=== PATIENT | male | born 1965 | race Caucasian/White ===

== ENCOUNTER 2020-11-02 09:15 | Outpatient (REF) | payer OTHER, SELFPAY ==
[2020-11-02 10:03] LABS: MANUAL DIFF FLAG NO
[2020-11-02 10:07] LABS: Basophils Absolute Auto 0.1 X10*3/uL (0.0-0.2); Basophils Percent Auto 1.3 % (0-2); Eosinophils Absolute Auto 0.4 X10*3/uL (0.0-0.4); Eosinophils Percent Auto 5.7 % (0-4); Hematocrit 41.8 % (42-52); Hemoglobin 13.6 g/dl (14.0-18.0); Imm Gran Abs Auto 0.01 X10*3/uL (0.00-0.03); Imm Gran Pct Auto 0.2 % (0.0-0.4); Lymphocytes Absolute Auto 2.9 X10*3/uL (1.2-4.9); Lymphocytes Percent Auto 46.4 % (20-40); Mean Corpuscular HGB Conc 32.5 g/dl (31.0-36.0); Mean Corpuscular Hemoglobin 28.5 pg (27.0-33.0); Mean Corpuscular Volume 87.4 fL (80-98); Mean Platelet Volume 10.9 fL (9.4-12.4); Monocytes Absolute Auto 0.5 X10*3/uL (0.1-1.2); Monocytes Percent Auto 8.1 % (2-11); Neutrophils Absolute Auto 2.4 X10*3/uL (2.0-8.3); Neutrophils Percent Auto 38.3 % (45-73); Platelet Count 239 X10*3/uL (160-400); Red Blood Count 4.78 X10*6/uL (4.60-5.80); Red Cell Distribution Width 13.5 % (11.0-16.0); White Blood Count 6.3 X10*3/uL (4.8-10.8)
[2020-11-02 10:33] LABS: Alanine Aminotransferase 38 U/L (0-40); Albumin Level 4.4 g/dL (3.5-5.0); Alkaline Phosphatase 67 U/L (39-117); Anion Gap 12 (12-20); Aspartate Amino Transferase 35 U/L (5-37); Blood Urea Nitrogen 17 mg/dL (9-16); Calcium 8.9 mg/dL (8.4-10.2); Carbon Dioxide 28 mmol/L (22-29); Chloride 104 mmol/L (96-108); Cholesterol 314 mg/dL; Estimated Glomerular Filt Rate > 60; Glucose Fasting 92 mg/dL (60-99); HDL Cholesterol 58 mg/dL; LDL Cholesterol Calculated 231 mg/dl; Potassium 4.1 mmol/l (3.3-5.1); Sodium 140 mmol/L (135-145); Total Protein 7.1 g/dL (6.5-8.0); Triglycerides 125 mg/dL
[2020-11-02 10:48] LABS: Erythrocyte Sedimentation Rate 8 MM/HR (0-15)
[2020-11-02 10:56] LABS: Free T4 (Free Thyroxine) 1.05 ng/dL (0.71-1.85); Thyroid Stimulating Hormone 3.22 uIU/mL (0.32-4.0)
== END 2020-11-02 09:16 | disposition home or self-care (01) ==
LOC: HO.10HDL 09:15
PROVIDERS: Visit Provider Internal Medicine
DX: Z00.00 Encounter for general adult medical examination without abnormal findings (principal); E03.9 Hypothyroidism, unspecified; L85.3 Xerosis cutis; B85.2 Pediculosis, unspecified
CPT/HCPCS: 36415; 80053; 80061; 84439; 84443; 85025; 85652

== ENCOUNTER 2021-11-13 12:01 | Outpatient (REF) | payer OTHER, SELFPAY ==
[2021-11-13 13:49] LABS: MANUAL DIFF FLAG NO
[2021-11-13 14:02] LABS: Basophils Absolute Auto 0.1 X10*3/uL (0.0-0.2); Basophils Percent Auto 0.9 % (0-2); Eosinophils Absolute Auto 0.3 X10*3/uL (0.0-0.4); Eosinophils Percent Auto 4.3 % (0-4); Hematocrit 41.3 % (42.0-52.0); Hemoglobin 13.5 g/dl (14.0-18.0); Imm Gran Abs Auto 0.01 X10*3/uL (0.00-0.03); Imm Gran Pct Auto 0.1 % (0.0-0.4); Immature Retic Fraction 9.3 % (2.3-13.4); Lymphocytes Percent Auto 38.9 % (20-40); Mean Corpuscular HGB Conc 32.7 g/dl (31.0-36.0); Mean Corpuscular Hemoglobin 29.2 pg (27.0-33.0); Mean Corpuscular Volume 89.2 fL (80.0-98.0); Mean Platelet Volume 11.5 fL (9.4-12.4); Monocytes Absolute Auto 0.6 X10*3/uL (0.1-1.2); Monocytes Percent Auto 8.4 % (2-11); Neutrophils Absolute Auto 3.6 x10*3/uL (2.0-8.3); Neutrophils Percent Auto 47.4 % (45-73); Platelet Count 248 X10*3/uL (160-400); Red Blood Count 4.63 X10*6/uL (4.60-5.80); Red Cell Distribution Width 13.6 % (11.0-16.0); Retic HGB Equivalent 31.4 pg (30.0-35.0); Reticulocyte Percent 1.5 % (0.5-1.8); Reticulocytes Absolute 0.068 X10*6/uL (0.026-0.095); White Blood Count 7.7 X10*3/uL (4.8-10.8)
[2021-11-13 14:32] LABS: Ferritin 88 ng/mL (20-250); Free T4 (Free Thyroxine) 1.08 ng/dL (0.71-1.85); Prostate Specific Antigen Scr < 0.05 ng/mL (<0.05-4.0); Thyroid Stimulating Hormone 3.05 uIU/mL (0.32-4.0)
[2021-11-13 14:37] LABS: Alanine Aminotransferase 17 U/L (0-40); Albumin Level 4.3 g/dL (3.5-5.0); Alkaline Phosphatase 63 U/L (39-117); Anion Gap 12 (12-20); Aspartate Amino Transferase 20 U/L (5-37); Bilirubin Total 0.7 mg/dL (0.0-1.0); Carbon Dioxide 27 mmol/L (22-29); Chloride 105 mmol/L (96-108); Cholesterol 279 mg/dL; Estimated Glomerular Filt Rate > 60; Glucose Random 102 mg/dL (60-115); HDL Cholesterol 48 mg/dL; Iron 79 mcg/dL (45-160); LDL Cholesterol Calculated 202 mg/dl; Percent Iron Saturation 23 % (15-50); Potassium 4.2 mmol/L (3.3-5.1); Sodium 140 mmol/L (135-145); Total Iron Binding Capacity 345 mcg/dL (228-428); Total Protein 7.1 g/dL (6.5-8.0); Triglycerides 146 mg/dL; Unsaturated Iron Binding 266 ug/dL
[2021-11-13 15:48] LABS: Blood Urea Nitrogen 19 mg/dL (9-16); Calcium 9.8 mg/dL (8.4-10.2)
[2021-11-13 21:56] LABS: Folate 10.9 ng/mL (> or = 4.0)
[2021-11-13 23:31] LABS: Vitamin B12 1038 pg/mL (200-900)
== END 2021-11-13 12:02 | disposition home or self-care (01) ==
LOC: HO.10HDL 12:01
PROVIDERS: Visit Provider Internal Medicine
DX: Z12.5 Encounter for screening for malignant neoplasm of prostate (principal); E78.00 Pure hypercholesterolemia, unspecified
CPT/HCPCS: 36415; 80053; 80061; 82607; 82728; 82746; 83540; 84153; 84439; 84443; 85025; 85045

== ENCOUNTER 2022-02-17 12:48 | Outpatient (REF) | payer OTHER, SELFPAY ==
[2022-02-17 14:09] LABS: Cholesterol 175 mg/dL; HDL Cholesterol 35 mg/dL; LDL Cholesterol Calculated 90 mg/dl; Triglycerides 250 mg/dL
== END 2022-02-17 12:49 | disposition home or self-care (01) ==
LOC: HO.10HDL 12:48
PROVIDERS: Visit Provider Internal Medicine
DX: E78.00 Pure hypercholesterolemia, unspecified (principal)
CPT/HCPCS: 36415; 80061

== ENCOUNTER 2022-05-24 09:40 | Outpatient (REF) | payer OTHER, SELFPAY ==
[2022-05-24 10:58] LABS: Alanine Aminotransferase 17 U/L (0-40); Albumin Level 4.2 g/dL (3.5-5.0); Alkaline Phosphatase 58 U/L (39-117); Anion Gap 14 (12-20); Aspartate Amino Transferase 18 U/L (5-37); Bilirubin Total 0.4 mg/dL (0.0-1.0); Blood Urea Nitrogen 20 mg/dL (9-16); Calcium 9.2 mg/dL (8.4-10.2); Carbon Dioxide 28 mmol/L (22-29); Chloride 104 mmol/L (96-108); Estimated Glomerular Filt Rate > 60; Glucose Random 87 mg/dL (60-115); Potassium 4.8 mmol/L (3.3-5.1); Sodium 141 mmol/L (135-145); Total Protein 6.9 g/dL (6.5-8.0)
[2022-05-24 11:06] LABS: Estimated Average Glucose 103 mg/dL; Hemoglobin A1c % 5.2 %
== END 2022-05-24 09:41 | disposition home or self-care (01) ==
LOC: HO.LAB 09:40
PROVIDERS: PCP Internal Medicine; Visit Provider Internal Medicine
DX: E78.00 Pure hypercholesterolemia, unspecified (principal); R73.01 Impaired fasting glucose
CPT/HCPCS: 36415; 80053; 83036

== ENCOUNTER 2022-12-05 14:55 | Outpatient (REF) | payer OTHER, SELFPAY ==
[2022-12-05 15:31] LABS: MANUAL DIFF FLAG NO
[2022-12-05 15:59] LABS: Basophils Absolute Auto 0.1 X10*3/uL (0.0-0.2); Eosinophils Absolute Auto 0.4 X10*3/uL (0.0-0.4); Eosinophils Percent Auto 5.4 % (0-4); Hemoglobin 14.3 g/dl (14.0-18.0); Imm Gran Abs Auto 0.03 X10*3/uL (0.00-0.03); Imm Gran Pct Auto 0.4 % (0.0-0.4); Immature Retic Fraction 12.9 % (2.3-13.4); Lymphocytes Absolute Auto 2.5 X10*3/uL (1.2-4.9); Lymphocytes Percent Auto 37.2 % (20-40); Mean Corpuscular HGB Conc 33.3 g/dl (31.0-36.0); Mean Corpuscular Hemoglobin 29.4 pg (27.0-33.0); Mean Corpuscular Volume 88.5 fL (80.0-98.0); Mean Platelet Volume 11.4 fL (9.4-12.4); Monocytes Absolute Auto 0.6 X10*3/uL (0.1-1.2); Monocytes Percent Auto 9.4 % (2-11); Neutrophils Absolute Auto 3.2 x10*3/uL (2.0-8.3); Neutrophils Percent Auto 46.6 % (45-73); Platelet Count 207 X10*3/uL (160-400); Red Blood Count 4.86 X10*6/uL (4.60-5.80); Red Cell Distribution Width 12.3 % (11.0-16.0); Retic HGB Equivalent 33.8 pg (30.0-35.0); Reticulocyte Percent 1.4 % (0.5-1.8); Reticulocytes Absolute 0.068 X10*6/uL (0.026-0.095); White Blood Count 6.8 X10*3/uL (4.8-10.8)
[2022-12-05 16:08] LABS: Estimated Average Glucose 105 mg/dL; Hemoglobin A1c % 5.3 %
[2022-12-05 16:52] LABS: Alanine Aminotransferase 20 U/L (0-40); Albumin Level 4.2 g/dL (3.5-5.0); Alkaline Phosphatase 81 U/L (39-117); Anion Gap 13 (12-20); Aspartate Amino Transferase 23 U/L (5-37); Bilirubin Total 0.7 mg/dL (0.0-1.0); Blood Urea Nitrogen 24 mg/dL (9-16); Calcium 9.7 mg/dL (8.4-10.2); Carbon Dioxide 30 mmol/L (22-29); Chloride 105 mmol/L (96-108); Cholesterol 231 mg/dL; Estimated Glomerular Filt Rate > 60; Glucose Random 88 mg/dL (60-115); HDL Cholesterol 41 mg/dL; Iron 131 mcg/dL (45-160); LDL Cholesterol Calculated 137 mg/dl; Percent Iron Saturation 40 % (15-50); Potassium 5.5 mmol/L (3.3-5.1); Sodium 142 mmol/L (135-145); Total Iron Binding Capacity 325 mcg/dL (228-428); Total Protein 7.1 g/dL (6.5-8.0); Triglycerides 268 mg/dL; Unsaturated Iron Binding 194 ug/dL
[2022-12-05 17:45] LABS: Ferritin 63 ng/mL (20-250); Folate 9.6 ng/mL (> or = 4.0); Free T4 (Free Thyroxine) 0.93 ng/dL (0.71-1.85); Vitamin B12 839 pg/mL (200-900)
[2022-12-05 19:38] LABS: PSA,Total (Free>4and<10) < 0.10 ng/mL (0.00-4.00)
== END 2022-12-05 14:56 | disposition home or self-care (01) ==
LOC: HO.LAB 14:55
PROVIDERS: PCP Internal Medicine; Visit Provider Internal Medicine
DX: Z12.5 Encounter for screening for malignant neoplasm of prostate (principal); R73.01 Impaired fasting glucose; C61 Malignant neoplasm of prostate; E03.9 Hypothyroidism, unspecified; E78.00 Pure hypercholesterolemia, unspecified
CPT/HCPCS: 36415; 80053; 80061; 82607; 82728; 82746; 83036; 83540; 84153; 84439; 84443; 85025; 85045

== ENCOUNTER 2023-03-12 09:42 | Outpatient (REF) | payer OTHER, SELFPAY ==
[2023-03-12 10:12] LABS: Estimated Average Glucose 103 mg/dL; Hemoglobin A1c % 5.2 %
[2023-03-12 10:26] LABS: Alanine Aminotransferase 28 U/L (0-40); Alkaline Phosphatase 75 U/L (39-117); Anion Gap 12 (12-20); Aspartate Amino Transferase 24 U/L (5-37); Bilirubin Total 0.9 mg/dL (0.0-1.0); Blood Urea Nitrogen 19 mg/dL (9-16); Calcium 9.2 mg/dL (8.4-10.2); Carbon Dioxide 25 mmol/L (22-29); Chloride 105 mmol/L (96-108); Cholesterol 237 mg/dL; Estimated Glomerular Filt Rate > 60; Glucose Random 95 mg/dL (60-115); HDL Cholesterol 38 mg/dL; LDL Cholesterol Calculated 144 mg/dl; Potassium 4.3 mmol/L (3.3-5.1); Sodium 138 mmol/L (135-145); Total Protein 6.7 g/dL (6.5-8.0); Triglycerides 279 mg/dL
== END 2023-03-12 09:43 | disposition home or self-care (01) ==
LOC: HO.LAB 09:42
PROVIDERS: PCP Internal Medicine; Visit Provider Internal Medicine
DX: E78.00 Pure hypercholesterolemia, unspecified (principal); R73.01 Impaired fasting glucose
CPT/HCPCS: 36415; 80053; 80061; 83036

== ENCOUNTER 2023-04-17 14:05 | Outpatient (AMB) | payer OTHER, SELFPAY ==
--- NOTE | 2023-04-17 09:35 | A.OFFVIS_ITS ---
Intake Intake Visit Reasons: LDCT SD Allergies codeine Allergy (Unknown, Verified 03/13/23 15:08) upset stomach HPI LDCT SD HPI Details Initial visit for this 57yo smoker with a 35+PYH. Patient has been smoking since age 15 for 42 years at 3/4-1ppd. Max 1.5ppd. . Denies marijuana use. Denies second hand smoke exposure. Denies exposure to chemicals or substances like asbestos. 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 . Denies known family history of lung cancer. Reports personal history of prostate cancer - s/p TURP in 2012. Denies chest CT in last year. . Denies recent travel outside the [place]. Denies recent respiratory illness or recent hospitalization for respiratory issues. Reports testing positive for COVID. 2020. Admits receiving COVID Vaccine. x 3. . Denies fever, chills, new/worsening cough, hemoptysis, hoarseness or dysphagia. Denies significant chest pain, significant dyspnea or unintentional weight loss. Patient Lung Cancer Screening Questionnaire reviewed with patient by provider. . Shared Decision Making Completed. Patient meets criteria. Discussed in detail with patient, the risk vs benefit of LDCT screening. Patient consents to proceed with scan. Discussed smoking cessation. [facility] Medical History (Updated 04/17/23 @ 14:04 by Ammy Gamble PA-C) Acquired hypothyroidism Anxiety and depression Degenerative disc disease, lumbar Dry skin dermatitis Head lice History of prostate cancer (~2011) Nicotine dependence, cigarettes, uncomplicated Pure hypercholesterolemia Spinal stenosis Surgical History (Updated 04/09/23 @ 12:59 by Ammy Gamble PA-C) History of colonoscopy History of prostate biopsy History of prostate surgery History of vascular surgery Family History (Updated 03/13/23 @ 15:08 by Gracie Baker, [facility]) Father Multiple myeloma Mother CVA (cerebral vascular accident) Uterine cancer Family/Other FH: mental illness Paternal Uncle Heart attack Brother Testicular cancer Renal cancer Ascending aortic aneurysm Social History (Updated 04/17/23 @ 14:04 by Ammy Gamble PA-C) Housing: Apartment Alcohol intake: current Patient Tobacco Use Status: Current everyday Tobacco user Tobacco use type: Cigarette Years Smoked: (current smoker - onset 15yo, 3/4-1ppd x 42yrs, 35+PYH) e-Cigarette/Vaping Use: Never Used Second Hand Smoke Exposure: Yes service: No Current occupational status: retired Cognitive needs: No Hearing needs: No Vision needs: Yes Assessment & Plan Assessment & Plan (1) Nicotine dependence, cigarettes, uncomplicated: Comment: (current smoker - onset 15yo, 3/4-1ppd x 42yrs, 35+PYH) Code(s): F17.210 - Nicotine dependence, cigarettes, uncomplicated Plan: - SDM visit completed today in office. - Patient meets criteria for LDCT for lung cancer screening purposes and is asymptomatic. - Smoking cessation counseling offered. Patients can always call [phone]. - Will arrange for a LDCT scan of the chest for screening purposes at [facility]. - Risks, benefits, and alternatives were discussed in detail and the patient agrees to proceed. - Risks discussed include but are not limited to: radiation exposure, anxiety during testing and while awaiting results, false negatives, false positives and possibility of additional intervention such as further imaging or surgical procedures for benign disease. - Benefits are obviously detection of lung cancer at an early stage which can lead to improved outcomes. - Discussed the importance of screening program compliance with adherence to yearly LDCT scan as scheduled - or sooner interval scans for personalized screening regimen. - Discussed follow up plan. Our office will send a letter discussing results and if needed set up phone call and office visit based on CT findings. - Patient educated on results categorization and the management decisions for suspicious findings potentially found on the screening LDCT scan. Any patient with a Lung RADS score of 3 or 4 will be reviewed by a multidisciplinary team at [facility] to form a plan of action in regards to scan findings. - If further work up is warranted for a suspicious lung finding this will be followed by the Lung Cancer Screening program in conjunction with the Thoracic Surgery Department at [facility]. - A copy of the office note and LDCT will be sent to the patient's PCP - as well as documentation on any associated further plans of care. - Incidental findings on LDCT are the PCP's responsibility. These findings are indicated with an S finding on the LDCT Assessment. A note discussing the findings will be sent to the PCP who is then responsible for further management. - All questions answered.? Coding Level of Care Code Lung Cancer Screening [id number] Diagnoses Nicotine dependence, cigarettes, uncomplicated F17.210
== END 2023-04-17 14:24 | disposition home or self-care (01) ==
PROVIDERS: PCP Internal Medicine; Visit Provider Physician Assistant Medical
DX: F17.210 Nicotine dependence, cigarettes, uncomplicated (principal)
CPT/HCPCS: G0296

== ENCOUNTER 2023-04-17 14:28 | Outpatient (REF) | payer OTHER, SELFPAY ==
--- NOTE | ~2023-04-17 | CT_ITS ---
EXAMINATION: CT CHEST SCREENING CLINICAL INFORMATION: Current smoker. 40 pack year history. COMPARISON: Previous chest x-ray most recent August 2009 TECHNIQUE: Multidetector volumetric CT imaging of the chest is performed without contrast using low dose technique. Additional 2D coronal and sagittal reformatted images and axial 3D maximum intensity projection (MIP) images are generated on the CT workstation. This CT examination was performed using dose optimization techniques as appropriate, variously including the following: *Automated exposure control *Adjustment of mA and/or kV according to patient size (this includes techniques or standardized protocols for targeted exams where dose is matched to indication/reason for exam; i.e. extremities or head) *Use of iterative reconstruction technique DLP: 81 mGy-cm FINDINGS: LUNGS: Emphysema. 3 mm peripheral or subpleural right middle lobe nodule axial image 377 series 5. 2 x 4 mm right middle lobe nodule axial image 379 series 5. 2 mm peripheral or subpleural right lower lobe nodule adjacent to the fissure axial image 372 series 5. 2 mm right lower lobe nodule axial image 362 series 5. 3 mm left upper lobe nodule axial image 345 series 5. 3 x 6 and 2 x 5 mm peripheral or subpleural right lower lobe nodules adjacent to the fissure axial image 329 series 5 5 mm triangular-shaped right middle lobe nodule adjacent to the minor fissure axial image 295 series 5. 3 mm right upper lobe nodules axial image 385 and 291 series 5. 2 mm left upper lobe nodule questioned partially calcified axial image 269 series 5. 2 mm peripheral or subpleural left upper lobe nodule adjacent to the fissure axial image 189 series 5. 3 mm peripheral or subpleural left upper lobe nodule axial image 183 series 5. 2 mm question calcified left upper lobe nodule axial image 242 series 5. 3 mm heterogeneous left upper lobe nodule axial to 22 series 5. 2 mm left upper lobe nodule axial image series 5. Scarring or subsegmental atelectasis at the lung bases. MEDIASTINUM: The mediastinum is normal. CORONARY ARTERY CALCIFICATION: None visualized on this study. PLEURA: There is no pleural effusion. No pleural mass or thickening. AXILLA: No lymphadenopathy. UPPER ABDOMEN: Unremarkable OSSEOUS STRUCTURES: Degenerative changes of the spine. CT/CT lung screening IMPRESSION: Emphysema. Small pulmonary nodules, many of which probably represent 4 subpleural lymph nodes. ASSESSMENT: Lung-RADS category 2: Benign RECOMMENDATION: Annual low-dose chest CT follow-up recommended
== END 2023-04-17 14:29 | disposition home or self-care (01) ==
LOC: HO.CT 14:28
PROVIDERS: PCP Internal Medicine; Visit Provider Physician Assistant Medical
DX: Z12.2 Encounter for screening for malignant neoplasm of respiratory organs (principal); F17.210 Nicotine dependence, cigarettes, uncomplicated
CPT/HCPCS: 71271; G0296

== ENCOUNTER 2023-11-07 10:24 | Outpatient (REF) | payer OTHER, SELFPAY ==
[2023-11-07 11:16] LABS: Estimated Average Glucose 108 mg/dL; Hemoglobin A1c % 5.4 % (<6.0)
[2023-11-07 12:10] LABS: Alanine Aminotransferase 29 U/L (0-40); Albumin Level 4.3 g/dL (3.5-5.0); Alkaline Phosphatase 80 U/L (39-117); Anion Gap 17 (12-20); Aspartate Amino Transferase 24 U/L (5-37); Bilirubin Total 0.6 mg/dL (0.0-1.0); Blood Urea Nitrogen 32 mg/dL (9-16); Calcium 9.8 mg/dL (8.4-10.2); Carbon Dioxide 26 mmol/L (22-29); Chloride 105 mmol/L (96-108); Cholesterol 173 mg/dL (<200); Estimated Glomerular Filt Rate 58; Glucose Random 88 mg/dL (60-115); HDL Cholesterol 42 mg/dL (>40); LDL Cholesterol Calculated 97 mg/dL (<100); Potassium 5.5 mmol/L (3.3-5.1); Sodium 142 mmol/L (135-145); Total Protein 7.6 g/dL (6.5-8.0); Triglycerides 173 mg/dL (<150)
[2023-11-07 12:29] LABS: PSA,Total (Free>4and<10) < 0.10 ng/mL (0.00-4.00); Prostate Specific Antigen Scr < 0.10 ng/mL (<0.05-4.0)
== END 2023-11-07 10:25 | disposition home or self-care (01) ==
LOC: HO.LAB 10:24
PROVIDERS: PCP Internal Medicine; Visit Provider Internal Medicine
DX: Z12.5 Encounter for screening for malignant neoplasm of prostate (principal); C61 Malignant neoplasm of prostate; R73.01 Impaired fasting glucose; E78.00 Pure hypercholesterolemia, unspecified
CPT/HCPCS: 36415; 80053; 80061; 83036; 84153

== ENCOUNTER 2023-11-09 17:19 | Outpatient (AMB) | payer OTHER, SELFPAY ==
--- NOTE | 2023-11-09 17:26 | A.OFFPC_ITS ---
Vital Signs 11/09/23 17:29 Height 6 ft 3 in Weight 110.223 kg BMI 30.4 BP 110/74 Blood Pressure Location Lt brachial Position Sitting Intake Visit Reasons: PE - due for colorectal cancer screen Intake Note: Patient here for a physical exam Admissions Consultant Required: No Accompanied by: Self / Same As Patient Allergies codeine Allergy (Unknown, Verified 11/09/23 17:29) upset stomach Medication List - Last Reconciled 11/09/23 by Steven Sanchez MD atorvastatin 40 mg PO BEDTIME 90 days comp.stocking,thigh,long,large As directed 20-30 mm HG fluoxetine 20 mg PO DAILY levothyroxine 50 mcg PO DAILY 90 days lorazepam 1 mg PO BID PRN 30 days nicotine 1 patch transdermal DAILY nicotine 1 patch transdermal DAILY psyllium husk (Daily Fiber) 0.4 grams PO BEDTIME quetiapine 50 mg PO BEDTIME 90 days sildenafil 100 mg PO DAILY PRN Tobacco use date assessed: 11/09/23 Dental Screening Dental Screen Date: 11/09/23 Did you have a dental visit in the last 12 months?: No Did you have a dental problem in the last 6 months where you did not have access to dental care?: No Was dental information given to patient?: Patient has dentist HPI PE - due for colorectal cancer screen HPI Details 57-year-old overweight male smoker with a history of impaired glucose tolerance hypothyroidism hypercholesterolemia last seen in March 2023 patient is here for physical exam April [address] scan done of the chest for lung cancer screening showing COPD with small pulmonary nodules many of which probably represent for a subpleural lymph nodes. Advised annual CT. [facility] Medical History (Updated 11/09/23 @ 17:49 by Steven Sanchez MD) Nicotine dependence, cigarettes, uncomplicated History of prostate cancer (~2011) Spinal stenosis Degenerative disc disease, lumbar Anxiety and depression Dry skin dermatitis Acquired hypothyroidism Pure hypercholesterolemia Head lice Surgical History History of vascular surgery History of colonoscopy History of prostate biopsy History of prostate surgery Family History Father Multiple myeloma Mother CVA (cerebral vascular accident) Uterine cancer Family/Other FH: mental illness Paternal Uncle Heart attack Brother Testicular cancer Renal cancer Ascending aortic aneurysm Social History (Updated 11/09/23 @ 17:39 by Steven Sanchez MD) Housing: Apartment Alcohol intake: current Comment: holiday 1-2 drinks Patient Tobacco Use Status: Current everyday Tobacco user Tobacco use type: Cigarette Cigarettes Per Day: 15 Years Smoked: (current smoker - onset 15yo, 3/4-1ppd x 42yrs, 35+PYH) e-Cigarette/Vaping Use: Never Used Second Hand Smoke Exposure: Yes service: No Current occupational status: retired Cognitive needs: No Hearing needs: No Vision needs: Yes Questionnaire PHQ-9 Over the last 2 weeks, how often have you been bothered by any of the following problems? 1. Little interest or pleasure in doing things: not at all 2. Feeling down, depressed, or hopeless: not at all 3. Trouble falling or staying asleep, or sleeping too much: not at all 4. Feeling tired or having little energy: not at all 5. Poor appetite or overeating: not at all 6. Feeling bad about yourself - or that you are a failure or have let yourself or your family down: not at all 7. Trouble concentrating on things, such as reading the newspaper or watching television: not at all 8. Moving or speaking so slowly that other people could have noticed. Or the opposite - being so fidgety or restless that you have been moving around a lot more than usual: not at all 9. Thoughts that you would be better off or of hurting yourself in some way: not at all Total score: 0 Source: Developed by Drs. Alek Daley, Deepali Patel, Juventino Dowell and colleagues, with an educational jocelyne from [employer]. Thrive Questionnaire Date Thrive assessed: 11/09/23 I am a: Patient What is your living situation today?: I have a steady place to live Within the past 12 months, did the food you bought not last and you didn't have the money to get more?: Never true Within the past 12 months, did you worry whether your food would run out before you got money to buy more?: Never true Do you have trouble paying for medicines?: No Do you have trouble getting transportation to medical appointments?: No Do you have trouble paying your heating and electricity bill?: No Do you have trouble taking care of your child, family member or friend?: No Do you have trouble with day-to-day activities such as bathing, preparing meals, shopping, managing finances, etc.?: No Are you currently unemployed and looking for a job?: No Are you interested in more education?: No Please select the resources that you would like help with: None Currently or been in a relationship where the following occur: no concerns reported THRIVE Score: 0 AUDIT C Alcohol Use Questionnaire (AUDIT-C) 1. How often do you have a drink containing alcohol?: Never Total Score: 0 FORD-7 AMB Questionnaire FORD-7 Date FORD - 7 assessed: 11/09/23 Feeling nervous, anxious, or on edge: 0 = Not at all Not being able to stop or control worryin = Not at all Worrying too much about different things: 0 = Not at all Trouble relaxin = Not at all Being so restless that it is hard to sit still: 0 = Not at all Becoming easily annoyed or irritable: 0 = Not at all Feeling afraid as if something awful might happen: 0 = Not at all Total FORD-7 score (0-4 normal; 5-9 mild; 10-14 moderate; 15-21 severe): 0 Source: Developed by Drs. Alek Daley, Deepali Patel, Juventino Dowell and colleagues, with an educational jocelyne from [employer]. Review of Systems Const Denies poor appetite and Denies weakness Eyes Denies no additional complaints ENT Reports Normal hearing present, Denies dizziness, Denies nasal congestion, Denies tinnitus and Denies sore throat Card Denies chest pain, Denies syncope, Denies rapid heart rate and Denies dyspnea Resp Denies cough and Denies dyspnea GI Denies change in stool character, Reports constipation, Denies diarrhea, Denies nausea and Denies vomiting Denies dysuria and Denies urinary frequency Neuro Reports Normal hearing present, Denies confusion, Denies dizziness, Denies syncope and Denies weakness Psych Denies confusion Physical exam (Primary Care) Vital Signs: Last Vital Signs BP 110/74 11/09/23 17:29 BMI result Body Mass Index 30.4 Tobacco/Smoking Status: Tobacco use Status Tobacco use date assessed 11/09/23 11/09/23 17:33 Patient Tobacco Use Status Current everyday Tobacco 11/09/23 17:39 Tobacco use type Cigarette 11/09/23 17:39 e-Cigarette/Vaping Use Never Used 11/09/23 17:39 PHQ-9: PHQ-9 Score PHQ-9: Total score 0 11/09/23 17:33 Thrive Assessment: Date of Thrive Assessment Date Thrive assessed 11/09/23 11/09/23 17:33 Currently or been in a relationship where the following occur: no concerns reported Const General: No confusion Orientation/consciousness: No confusion HENMT Head: Yes normocephalic Ears: external ears normal and TM's normal bilaterally Face and sinus: Yes normal facial exam Mouth: moist mucous membranes Throat: Yes tonsils normal Eyes Conjunctivae: conjunctivae normal Pupils: Equal, round and reactive pupils present and Pupil accommodation reflex normal Direct Ophthalmoscopy: normal light reflex Neck Neck: No lymphadenopathy Thyroid: Thyroid normal Chest Chest palpation & inspection: normal inspection of the chest Resp Effort & Inspection: normal respiratory effort and no audible wheezes Auscultation: clear to auscultation bilaterally, no crackles, no wheezes and lung sounds not diminished Cardio Rate: regular rate Rhythm: regular rhythm Peripheral pulses: radial pulses present and dorsalis pedis present GI Palpation (GI): no masses Auscultation: normal bowel sounds and normoactive bowel sounds Rectal Exam - Male: Yes deferred Skin General skin exam: no rashes or lesions noted Rashes: no rashes Neuro General: No confusion Cranial nerves: Yes Equal, round and reactive pupils present and Yes Normal hearing present Cognition (Neuro): normal cognition Gait exam (Neuro): Normal gait present Motor exam (neuro): 5/5 motor strength present throughout Deep tendon reflexes (DTR's): Right brachioradialis reflex intensity grade: 2+, Left brachioradialis reflex intensity grade: 2+, Right patellar reflex intensity grade: 2+ and Left patellar reflex intensity grade: 2+ Extrem General: No edema Office Procedures Flu Questionnaire Does the patient have a severe egg allergy?: No Does the patient have severe life threatening allergies?: No Does the patient have a fever or illness today?: No Has the patient ever had Guillain-[place] Syndrome?: No Has the patient ever had any past reaction to a flu shot?: No Immunizations flu vacc [id number] 6mos up(PF) 60 mcg(15 mcgx4)/0.5 mL IM syringe Performing Provider: Steven Sanchez MD [facility] Administered by: HOSEA Raya on 11/09/23 17:59 Dose Route Admin Location Dispensed Lot Number Expiration Date NDC [employer] 0.5 mL IM Left Deltoid 0.5 mL [id number] 04/03/24 [id number] [employer] VIS Given Date VIS Provided VIS Publication Date 11/09/23 Single Vaccine 21 Eligibility Eligibility Date Funding Source Not VFC Eligible 11/09/23 Private Assessment and Plan Assessment & Plan (1) Annual physical exam: Code(s): Z00.00 - Encounter for general adult medical examination without abnormal findings (2) Pure hypercholesterolemia: Code(s): E78.00 - Pure hypercholesterolemia, unspecified Plan: Avoid fried foods, chicken skin, eggs, butter margarine, pastries and meat. Be it pork or beef they have a lot of cholesterol presently on atorvastatin 40 mg once a day LDL goal of less than 130 and triglyceride of less than 150. (3) Acquired hypothyroidism: Code(s): E03.9 - Hypothyroidism, unspecified Plan: Continue with thyroid medication (4) Generalized anxiety disorder: Comment: decline referral 08/2022 Code(s): F41.1 - Generalized anxiety disorder Plan: Continue with therapy fluoxetine 20 mg once a day lorazepam p.r.n. quetiapine 50 mg at bedtime (5) Obesity: Code(s): E66.9 - Obesity, unspecified Plan: Diet and exercise (6) Hyperkalemia: Code(s): E87.5 - Hyperkalemia Plan: Discussed about potassium and will continue to monitor (7) History of prostate cancer: Onset Date: ~2011 Comment: (Adenocarcinoma - dx 2011 - s/p TURP 2012) Code(s): Z85.46 - Personal history of malignant neoplasm of prostate Plan: PSA testing negative. (8) Nicotine dependence, cigarettes, uncomplicated: Comment: (current smoker - onset 15yo, 3/4-1ppd x 42yrs, 35+PYH) CT scan done April 2023 Code(s): F17.210 - Nicotine dependence, cigarettes, uncomplicated Plan: CT scan done April 2023 lung cancer screening program (9) Colon cancer screening: Code(s): Z12.11 - Encounter for screening for malignant neoplasm of colon Plan: Reminded about colonoscopy (10) Dehydration: Code(s): E86.0 - Dehydration Plan: increase oral fluids Orders: Orders Influenza [id number] Immunization Today Z23 - Encounter for immunization Free T4 (Free Thyroxine) Today E03.9 - Hypothyroidism, unspecified Thyroid Stimulating Hormone Today E03.9 - Hypothyroidism, unspecified Referrals Gastroenterology Referral Z12.11 - Encounter for screening for malignant neoplasm of colon Medications: New nicotine 1 patch transdermal DAILY 28 ea 0RF F17.210 - Nicotine dependence, cigarettes, uncomplicated nicotine 1 patch transdermal DAILY 28 ea 0RF F17.210 - Nicotine dependence, cigarettes, uncomplicated Refilled sildenafil administer 30 minutes to 4 hours before activity 100 mg PO DAILY PRN 7 tabs 8RF sexual activity F17.210 - Nicotine dependence, cigarettes, uncomplicated Coding Level of Care Code Est Pt Prev Care 40-64y([id number]) Diagnoses Annual physical exam Z00.00 Pure hypercholesterolemia E78.00 Acquired hypothyroidism E03.9 Generalized anxiety disorder F41.1 Obesity E66.9 Hyperkalemia E87.5 History of prostate cancer Z85.46 Nicotine dependence, cigarettes, uncomplicated F17.210 Colon cancer screening Z12.11 Dehydration E86.0
[2023-11-09 17:29] VITALS: BP 110/74; BMI 30.4
== END 2023-11-09 17:56 | disposition home or self-care (01) ==
PROVIDERS: PCP Internal Medicine; Visit Provider Internal Medicine
DX: Z00.00 Encounter for general adult medical examination without abnormal findings (principal); E66.9 Obesity, unspecified; Z68.30 Body mass index [BMI] 30.0-30.9, adult; Z23 Encounter for immunization; E78.00 Pure hypercholesterolemia, unspecified; E03.9 Hypothyroidism, unspecified; F41.1 Generalized anxiety disorder; E87.5 Hyperkalemia; Z85.46 Personal history of malignant neoplasm of prostate; F17.210 Nicotine dependence, cigarettes, uncomplicated; E86.0 Dehydration
CPT/HCPCS: 90471; 90686; 99396

== ENCOUNTER 2024-02-04 14:35 | Outpatient (REF) | payer OTHER, SELFPAY ==
[2024-02-04 15:44] LABS: Anion Gap 13 (12-20); Blood Urea Nitrogen 28 mg/dL (9-16); Calcium 9.4 mg/dL (8.4-10.2); Carbon Dioxide 24 mmol/L (22-29); Chloride 105 mmol/L (96-108); Estimated Glomerular Filt Rate > 60; Glucose Random 90 mg/dL (60-115); Potassium 4.5 mmol/L (3.3-5.1); Sodium 137 mmol/L (135-145)
[2024-02-04 16:01] LABS: Free T4 (Free Thyroxine) 0.96 ng/dL (0.71-1.85)
== END 2024-02-04 14:36 | disposition home or self-care (01) ==
LOC: HO.LAB 14:35
PROVIDERS: PCP Internal Medicine; Visit Provider Internal Medicine
DX: E87.5 Hyperkalemia (principal); E03.9 Hypothyroidism, unspecified
CPT/HCPCS: 36415; 80048; 84439; 84443

== ENCOUNTER 2024-02-05 10:46 | Outpatient (AMB) | payer OTHER, SELFPAY ==
[2024-02-05 10:52] VITALS: BP 102/58; PULSE 77; O2SAT 91; BMI 30.2
--- NOTE | 2024-02-05 10:52 | MHC.PC.OV ---
Vital Signs 02/05/24 10:52 Height 6 ft 3 in Weight 242 lb BMI 30.2 BP 102/58 L Blood Pressure Location Lt brachial Position Sitting Pulse 77 Pulse Source Pulse Oximeter Pulse Oximetry (%) 91 L Oxygen Delivery Method Room Air Intake Visit Reasons: 3 Month Follow Up Allergies codeine Allergy (Unknown, Verified 02/05/24 10:52) upset stomach Medication List - Last Reconciled 02/05/24 by Steven Sanchez MD atorvastatin 40 mg PO BEDTIME 90 days comp.stocking,thigh,long,large As directed 20-30 mm HG fluoxetine 20 mg PO DAILY levothyroxine 50 mcg PO DAILY 30 days lorazepam 1 mg PO BID PRN 30 days nicotine 1 patch transdermal DAILY nicotine 1 patch transdermal DAILY psyllium husk (Daily Fiber) 0.4 grams PO BEDTIME quetiapine 50 mg PO BEDTIME 30 days sildenafil 100 mg PO DAILY PRN Tobacco use date assessed: 11/09/23 Dental Screening Dental Screen Date: 11/09/23 HPI 3 Month Follow Up HPI Details 58-year-old obese male smoker with hypercholesterolemia hypothyroidism and generalized anxiety disorder last seen in November 2023. Patient also has a history of prostate cancer patient comes in for follow-up. Colonoscopy reminder. [facility] Medical History (Updated 11/09/23 @ 17:49 by Steven Sanchez MD) Nicotine dependence, cigarettes, uncomplicated History of prostate cancer (~2011) Spinal stenosis Degenerative disc disease, lumbar Anxiety and depression Dry skin dermatitis Acquired hypothyroidism Pure hypercholesterolemia Head lice Surgical History History of vascular surgery History of colonoscopy History of prostate biopsy History of prostate surgery Family History Father Multiple myeloma Mother CVA (cerebral vascular accident) Uterine cancer Family/Other FH: mental illness Paternal Uncle Heart attack Brother Testicular cancer Renal cancer Ascending aortic aneurysm Social History (Updated 11/09/23 @ 17:39 by Steven Sanchez MD) Housing: Apartment Alcohol intake: current Comment: holiday 1-2 drinks Patient Tobacco Use Status: Current everyday Tobacco user Tobacco use type: Cigarette Cigarettes Per Day: 15 Years Smoked: (current smoker - onset 15yo, 3/4-1ppd x 42yrs, 35+PYH) Packs per year/per ci.00 e-Cigarette/Vaping Use: Never Used Second Hand Smoke Exposure: Yes service: No Current occupational status: retired Cognitive needs: No Hearing needs: No Vision needs: Yes Questionnaire PHQ-9 Over the last 2 weeks, how often have you been bothered by any of the following problems? 1. Little interest or pleasure in doing things: not at all 2. Feeling down, depressed, or hopeless: not at all 3. Trouble falling or staying asleep, or sleeping too much: not at all 4. Feeling tired or having little energy: not at all 5. Poor appetite or overeating: not at all 6. Feeling bad about yourself - or that you are a failure or have let yourself or your family down: not at all 7. Trouble concentrating on things, such as reading the newspaper or watching television: not at all 8. Moving or speaking so slowly that other people could have noticed. Or the opposite - being so fidgety or restless that you have been moving around a lot more than usual: not at all 9. Thoughts that you would be better off or of hurting yourself in some way: not at all Total score: 0 Depression Screening Interpretation: Negative Depression Screening Done: Yes Source: Developed by Drs. Alek Daley, Juventino Iniguez and colleagues, with an educational jocelyne from [employer]. Thrive Questionnaire Date Thrive assessed: 11/09/23 AUDIT C Alcohol Use Questionnaire (AUDIT-C) 1. How often do you have a drink containing alcohol?: Monthly or less 2. How many drinks containing alcohol do you have on a typical day when you are drinking?: 1 or 2 3. How often do you have six or more drinks on one occasion?: Never Total Score: 1 FORD-7 AMB Questionnaire FORD-7 Date FORD - 7 assessed: 11/09/23 Source: Developed by Drs. Alek Daley, Juventino Iniguez and colleagues, with an educational jocelyne from [employer]. Physical exam (Primary Care) Vital Signs: Last Vital Signs Pulse 77 02/05/24 10:52 BP 102/58 L 02/05/24 10:52 Pulse Ox 91 L 02/05/24 10:52 Oxygen Delivery Method Room Air 02/05/24 10:52 BMI result Body Mass Index 30.2 Tobacco/Smoking Status: Tobacco use Status Tobacco use date assessed 11/09/23 02/05/24 11:00 Patient Tobacco Use Status Current everyday Tobacco 02/05/24 11:00 Tobacco use type Cigarette 02/05/24 11:00 e-Cigarette/Vaping Use Never Used 02/05/24 11:00 PHQ-9: PHQ-9 Score PHQ-9: Total score 0 02/05/24 11:00 Depression Screening Interpretation: Negative Thrive Assessment: Date of Thrive Assessment Date Thrive assessed 11/09/23 02/05/24 11:00 Const General: alert; No acute distress Eyes Conjunctivae: conjunctivae normal Resp Auscultation: clear to auscultation bilaterally Cardio Rate: regular rate Rhythm: regular rhythm GI Inspection: Yes normal to inspection Extrem General: Yes normal to inspection and No edema Assessment and Plan Assessment & Plan (1) Colon cancer screening: Code(s): Z12.11 - Encounter for screening for malignant neoplasm of colon Plan: Patient is reminded about colonoscopy (2) Nicotine dependence, cigarettes, uncomplicated: Comment: (current smoker - onset 15yo, 3/4-1ppd x 42yrs, 35+PYH) CT scan done April 2023 Code(s): F17.210 - Nicotine dependence, cigarettes, uncomplicated Plan: April [address] scan. Advised patient to stop! (3) History of prostate cancer: Onset Date: ~2011 Comment: (Adenocarcinoma - dx 2011 - s/p TURP 2012) Code(s): Z85.46 - Personal history of malignant neoplasm of prostate Plan: Continue to monitor PSA. (4) Obesity: Code(s): E66.9 - Obesity, unspecified Plan: Diet and exercise (5) Impaired fasting glucose: Code(s): R73.01 - Impaired fasting glucose Plan: Decrease the amount of carbohydrate intake, pasta, bread, rice and potatoes are all sugar and that is aside from all the sweet stuff, remember that fruits are good but they are Sweet also. (6) Generalized anxiety disorder: Comment: decline referral 08/2022 Code(s): F41.1 - Generalized anxiety disorder Plan: Continue with present medication (7) Acquired hypothyroidism: Code(s): E03.9 - Hypothyroidism, unspecified Plan: Continue with thyroid medication and blood work is therapeutic (8) Pure hypercholesterolemia: Code(s): E78.00 - Pure hypercholesterolemia, unspecified Plan: Avoid fried foods, chicken skin, eggs, butter margarine, pastries and meat. Be it pork or beef they have a lot of cholesterol on atorvastatin 40 mg once a day Medications: Changed From quetiapine 50 mg PO BEDTIME 90 days 90 tabs 2RF F32.9 - Major depressive disorder, single episode, unspecified, F41.9 - Anxiety disorder, unspecified To quetiapine 50 mg PO BEDTIME 30 days 30 tabs 3RF F32.9 - Major depressive disorder, single episode, unspecified, F41.9 - Anxiety disorder, unspecified From levothyroxine 50 mcg PO DAILY 90 days 90 tabs 1RF F41.1 - Generalized anxiety disorder To levothyroxine 50 mcg PO DAILY 30 days 30 tabs 11RF F41.1 - Generalized anxiety disorder Refilled fluoxetine 20 mg PO DAILY 30 caps 11RF F41.1 - Generalized anxiety disorder Coding Level of Care Code Est Pt Level 4 (34692) Diagnoses Colon cancer screening Z12.11 Nicotine dependence, cigarettes, uncomplicated F17.210 History of prostate cancer Z85.46 Obesity E66.9 Impaired fasting glucose R73.01 Generalized anxiety disorder F41.1 Acquired hypothyroidism E03.9 Pure hypercholesterolemia E78.00
== END 2024-02-05 11:45 | disposition home or self-care (01) ==
PROVIDERS: PCP Internal Medicine; Visit Provider Internal Medicine
DX: R73.01 Impaired fasting glucose (principal); E66.9 Obesity, unspecified; Z68.30 Body mass index [BMI] 30.0-30.9, adult; Z12.11 Encounter for screening for malignant neoplasm of colon; F17.210 Nicotine dependence, cigarettes, uncomplicated; Z85.46 Personal history of malignant neoplasm of prostate; F41.1 Generalized anxiety disorder; E03.9 Hypothyroidism, unspecified; E78.00 Pure hypercholesterolemia, unspecified
CPT/HCPCS: 99214

== ENCOUNTER 2024-05-13 13:40 | Outpatient (REF) | payer BC, SELFPAY ==
[2024-05-13 13:56] LABS: MANUAL DIFF FLAG NO
[2024-05-13 14:08] LABS: Basophils Absolute Auto 0.1 X10*3/uL (0.0-0.2); Eosinophils Absolute Auto 0.3 X10*3/uL (0.0-0.4); Eosinophils Percent Auto 4.4 % (0-4); Hematocrit 43.8 % (42.0-52.0); Hemoglobin 14.7 g/dl (14.0-18.0); Imm Gran Abs Auto 0.04 X10*3/uL (0.00-0.03); Imm Gran Pct Auto 0.5 % (0.0-0.4); Lymphocytes Absolute Auto 3.3 X10*3/uL (1.2-4.9); Lymphocytes Percent Auto 42.8 % (20-40); Mean Corpuscular HGB Conc 33.6 g/dl (31.0-36.0); Mean Corpuscular Hemoglobin 29.8 pg (27.0-33.0); Mean Corpuscular Volume 88.7 fL (80.0-98.0); Mean Platelet Volume 10.6 fL (9.4-12.4); Monocytes Absolute Auto 0.6 X10*3/uL (0.1-1.2); Monocytes Percent Auto 7.8 % (2-11); Neutrophils Absolute Auto 3.4 x10*3/uL (2.0-8.3); Neutrophils Percent Auto 43.5 % (45-73); Platelet Count 220 X10*3/uL (160-400); Red Blood Count 4.94 X10*6/uL (4.60-5.80); Red Cell Distribution Width 13.2 % (11.0-16.0); White Blood Count 7.7 X10*3/uL (4.8-10.8)
[2024-05-13 14:48] LABS: Alanine Aminotransferase 26 U/L (0-40); Albumin Level 4.2 g/dL (3.5-5.0); Alkaline Phosphatase 97 U/L (39-117); Anion Gap 14 (12-20); Aspartate Amino Transferase 24 U/L (5-37); Bilirubin Total 0.5 mg/dL (0.0-1.0); Blood Urea Nitrogen 19 mg/dL (9-16); Calcium 9.8 mg/dL (8.4-10.2); Carbon Dioxide 28 mmol/L (22-29); Chloride 103 mmol/L (96-108); Cholesterol 190 mg/dL (<200); Estimated Glomerular Filt Rate > 60; Glucose Random 90 mg/dL (60-115); HDL Cholesterol 38 mg/dL (>40); LDL Cholesterol Calculated 106 mg/dL (<100); Potassium 4.5 mmol/L (3.3-5.1); Sodium 140 mmol/L (135-145); Total Protein 7.3 g/dL (6.5-8.0); Triglycerides 234 mg/dL (<150)
[2024-05-13 15:26] LABS: Folate 14.8 ng/mL (> or = 4.0); Vitamin B12 1538 pg/mL (200-900)
[2024-05-19 13:08] LABS: Vitamin D 25-OH, D2 <4 ng/mL; Vitamin D 25-OH, D3 25 ng/mL; Vitamin D 25-OH, Total 25 ng/mL (30-100)
== END 2024-05-13 13:41 | disposition home or self-care (01) ==
LOC: HO.LAB 13:40
PROVIDERS: PCP Internal Medicine
DX: Z00.00 Encounter for general adult medical examination without abnormal findings (principal)
CPT/HCPCS: 36415; 80053; 80061; 82306; 82607; 82746; 85025

== ENCOUNTER 2024-05-16 13:22 | Outpatient (AMB) | payer BC, SELFPAY ==
[2024-05-16 13:28] VITALS: BP 102/52; PULSE 108; O2SAT 97; BMI 30.2
--- NOTE | 2024-05-16 13:28 | A.OFFPC_ITS ---
Vital Signs 05/16/24 13:28 Height 6 ft 3 in Weight 242 lb BMI 30.2 BP 102/52 L Blood Pressure Location Lt brachial Position Sitting Pulse 108 H Pulse Source Pulse Oximeter Pulse Oximetry (%) 97 Oxygen Delivery Method Room Air Intake Visit Reasons: 3 Month Follow Up Allergies codeine Allergy (Unknown, Verified 05/16/24 13:29) upset stomach Tobacco use date assessed: 05/16/24 Dental Screening Dental Screen Date: 05/16/24 Did you have a dental visit in the last 12 months?: No Did you have a dental problem in the last 6 months where you did not have access to dental care?: No Was dental information given to patient?: Patient has dentist HPI 3 Month Follow Up HPI Details 58-year-old obese male smoker with histo ry of prostate cancer impaired glucose tolerance generalized anxiety disorder hypothyroidism and hypercholesterolemia last seen in February 2024. Patient was reminded about colonoscopy. twisted R ankle 6 weeks ago had hematoma on this still having pain. still having pain. smoking still - PFSH Medical History (Updated 05/16/24 @ 14:00 by Steven Sanchez MD) Nicotine dependence, cigarettes, uncomplicated History of prostate cancer (~2011) Spinal stenosis Degenerative disc disease, lumbar Anxiety and depression Dry skin dermatitis Acquired hypothyroidism Pure hypercholesterolemia Head lice Surgical History History of vascular surgery History of colonoscopy History of prostate biopsy History of prostate surgery Family History Father Multiple myeloma Mother CVA (cerebral vascular accident) Uterine cancer Family/Other FH: mental illness Paternal Uncle Heart attack Brother Testicular cancer Renal cancer Ascending aortic aneurysm Social History (Updated 11/09/23 @ 17:39 by Steven Sanchez MD) Housing: Apartment Alcohol intake: current Comment: holiday 1-2 drinks Patient Tobacco Use Status: Current everyday Tobacco user Tobacco use type: Cigarette Cigarettes Per Day: 15 Years Smoked: (current smoker - onset 15yo, 3/4-1ppd x 42yrs, 35+PYH) Packs per year/per ci.00 e-Cigarette/Vaping Use: Never Used Second Hand Smoke Exposure: Yes service: No Current occupational status: retired Cognitive needs: No Hearing needs: No Vision needs: Yes Questionnaire PHQ-9 Over the last 2 weeks, how often have you been bothered by any of the following problems? 1. Little interest or pleasure in doing things: not at all 2. Feeling down, depressed, or hopeless: not at all 3. Trouble falling or staying asleep, or sleeping too much: not at all 4. Feeling tired or having little energy: not at all 5. Poor appetite or overeating: not at all 6. Feeling bad about yourself - or that you are a failure or have let yourself or your family down: not at all 7. Trouble concentrating on things, such as reading the newspaper or watching television: not at all 8. Moving or speaking so slowly that other people could have noticed. Or the opposite - being so fidgety or restless that you have been moving around a lot more than usual: not at all 9. Thoughts that you would be better off or of hurting yourself in some way: not at all Total score: 0 Depression Screening Interpretation: Negative Depression Screening Done: Yes Source: Developed by Drs. Alek Daley, Deepali Patel, Juventino Dowell and colleagues, with an educational jocelyne from [employer]. Thrive Questionnaire Date Thrive assessed: 11/09/23 AUDIT C Alcohol Use Questionnaire (AUDIT-C) 1. How often do you have a drink containing alcohol?: Monthly or less 2. How many drinks containing alcohol do you have on a typical day when you are drinking?: 1 or 2 3. How often do you have six or more drinks on one occasion?: Never Total Score: 1 FORD-7 AMB Questionnaire FORD-7 Date FORD - 7 assessed: 11/09/23 Source: Developed by Drs. Alek Daley, Deepali Patel, Juventino Dowell and colleagues, with an educational jocelyne from [employer]. Physical exam (Primary Care) Vital Signs: Last Vital Signs Pulse 108 H 05/16/24 13:28 BP 102/52 L 05/16/24 13:28 Pulse Ox 97 05/16/24 13:28 Oxygen Delivery Method Room Air 05/16/24 13:28 BMI result Body Mass Index 30.2 Tobacco/Smoking Status: Tobacco use Status Tobacco use date assessed 05/16/24 05/16/24 13:34 Patient Tobacco Use Status Current everyday Tobacco 05/16/24 13:34 Tobacco use type Cigarette 05/16/24 13:34 e-Cigarette/Vaping Use Never Used 05/16/24 13:34 PHQ-9: PHQ-9 Score PHQ-9: Total score 0 05/16/24 13:34 Depression Screening Interpretation: Negative Thrive Assessment: Date of Thrive Assessment Date Thrive assessed 11/09/23 05/16/24 13:34 Const General: alert; No acute distress Eyes Conjunctivae: conjunctivae normal Resp Auscultation: clear to auscultation bilaterally Cardio Rate: regular rate Rhythm: regular rhythm GI Inspection: Yes normal to inspection Extrem General: Yes normal to inspection and No edema Assessment and Plan Assessment & Plan (1) Colon cancer screening: Code(s): Z12.11 - Encounter for screening for malignant neoplasm of colon Plan: Patient is reminded about colonoscopy again patient declined and so will go with Cologuard testing (2) Nicotine dependence, cigarettes, uncomplicated: Comment: (current smoker - onset 15yo, 3/4-1ppd x 42yrs, 35+PYH) CT scan done April 2023 Code(s): F17.210 - Nicotine dependence, cigarettes, uncomplicated Plan: Patient is advised to stop smoking! Enrolled in the lung cancer screening program. Will do another referral. (3) History of prostate cancer: Onset Date: ~2011 Comment: (Adenocarcinoma - dx 2011 - s/p TURP 2012) Code(s): Z85.46 - Personal history of malignant neoplasm of prostate Plan: Patient has not followed up with Urology in the last test for prostate numbers 11/2023 (4) Obesity: Code(s): E66.9 - Obesity, unspecified Plan: Diet and exercise (5) Impaired fasting glucose: Code(s): R73.01 - Impaired fasting glucose Plan: Decrease the amount of carbohydrate intake, pasta, bread, rice and potatoes are all sugar and that is aside from all the sweet stuff, remember that fruits are good but they are Sweet also. (6) Generalized anxiety disorder: Comment: decline referral 08/2022 Code(s): F41.1 - Generalized anxiety disorder Plan: Continue with fluoxetine and lorazepam as needed (7) Acquired hypothyroidism: Code(s): E03.9 - Hypothyroidism, unspecified Plan: Continue with thyroid medication (8) Pure hypercholesterolemia: Code(s): E78.00 - Pure hypercholesterolemia, unspecified Plan: Avoid fried foods, chicken skin, eggs, butter margarine, pastries and meat. Be it pork or beef they have a lot of cholesterol LDL goal of less than 130 and triglyceride of less than 150. On atorvastatin 40 mg once a day (9) Ankle pain, right: Comment: twisted ankle- fall slipped from deck 04/2024 Code(s): M25.571 - Pain in right ankle and joints of right foot Plan: X-ray requested (10) Colonoscopy refused: Code(s): Z53.20 - Procedure and treatment not carried out because of patient's decision for unspecified reasons Plan: Will request for Cologuard testing Orders: Orders XR ankle RT 2V Today M25.571 - Pain in right ankle and joints of right foot Referrals Lung Cancer Screening Referral F17.210 - Nicotine dependence, cigarettes, uncomplicated Cologuard Test Z12.11 - Encounter for screening for malignant neoplasm of colon Coding Level of Care Code Est Pt Level 4 (20872) Diagnoses Colon cancer screening Z12.11 Nicotine dependence, cigarettes, uncomplicated F17.210 History of prostate cancer Z85.46 Obesity E66.9 Impaired fasting glucose R73.01 Generalized anxiety disorder F41.1 Acquired hypothyroidism E03.9 Pure hypercholesterolemia E78.00 Ankle pain, right M25.571 Colonoscopy refused Z53.20
== END 2024-05-16 13:59 | disposition home or self-care (01) ==
PROVIDERS: PCP Internal Medicine; Visit Provider Internal Medicine
DX: R73.01 Impaired fasting glucose (principal); Z12.11 Encounter for screening for malignant neoplasm of colon; E66.9 Obesity, unspecified; Z68.30 Body mass index [BMI] 30.0-30.9, adult; F17.210 Nicotine dependence, cigarettes, uncomplicated; Z85.46 Personal history of malignant neoplasm of prostate; F41.1 Generalized anxiety disorder; E03.9 Hypothyroidism, unspecified; E78.00 Pure hypercholesterolemia, unspecified; M25.571 Pain in right ankle and joints of right foot; Z53.20 Procedure and treatment not carried out because of patient's decision for unspecified reasons
CPT/HCPCS: 99214

== ENCOUNTER 2024-07-18 17:36 | Outpatient (AMB) | payer BC, SELFPAY ==
[2024-07-18 17:42] VITALS: BP 114/72; PULSE 93; O2SAT 96; BMI 30.7
--- NOTE | 2024-07-18 17:42 | MHC.PC.OV ---
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 Accompanied by: Self / Same As Patient Allergies codeine Allergy (Unknown, Verified 07/18/24 17:45) upset stomach Tobacco use date assessed: 05/16/24 Dental Screening Dental Screen Date: 05/16/24 HPI left ankle popping HPI Details 58-year-old obese male with hypercholesterolemia hypothyroidism generalized anxiety disorder impaired glucose tolerance and history of prostate cancer coming in for an acute problem.hx of trauma before may had ankle problem but better but L knee pain , cannot due lateral movement PFSH Medical History (Updated 07/18/24 @ 17:54 by Steven Sanchez MD) Nicotine dependence, cigarettes, uncomplicated History of prostate cancer (~2011) Spinal stenosis Degenerative disc disease, lumbar Anxiety and depression Dry skin dermatitis Acquired hypothyroidism Pure hypercholesterolemia Head lice Surgical History History of vascular surgery History of colonoscopy History of prostate biopsy History of prostate surgery Family History Father Multiple myeloma Mother CVA (cerebral vascular accident) Uterine cancer Family/Other FH: mental illness Paternal Uncle Heart attack Brother Testicular cancer Renal cancer Ascending aortic aneurysm Social History Housing: Apartment Alcohol intake: current Comment: holiday 1-2 drinks Patient Tobacco Use Status: Current everyday Tobacco user Tobacco use type: Cigarette Cigarettes Per Day: 15 Years Smoked: (current smoker - onset 15yo, 3/4-1ppd x 42yrs, 35+PYH) e-Cigarette/Vaping Use: Never Used Second Hand Smoke Exposure: Yes service: No Current occupational status: retired Cognitive needs: No Hearing needs: No Vision needs: Yes Questionnaire Thrive Questionnaire Date Thrive assessed: 11/09/23 FORD-7 AMB Questionnaire FORD-7 Date FORD - 7 assessed: 11/09/23 Source: Developed by Drs. Alek Daley, Deepali B.W. Juventino Patel and colleagues, with an educational jocelyne from [employer]. Physical exam (Primary Care) Vital Signs: Last Vital Signs Pulse 93 07/18/24 17:42 BP 114/72 07/18/24 17:42 Pulse Ox 96 07/18/24 17:42 Oxygen Delivery Method Room Air 07/18/24 17:42 BMI result Body Mass Index 30.7 Tobacco/Smoking Status: Tobacco use Status Tobacco use date assessed 05/16/24 07/18/24 17:43 Patient Tobacco Use Status Current everyday Tobacco 07/18/24 17:43 Tobacco use type Cigarette 07/18/24 17:43 e-Cigarette/Vaping Use Never Used 07/18/24 17:43 Thrive Assessment: Date of Thrive Assessment Date Thrive assessed 11/09/23 07/18/24 17:43 Extrem Elbow/forearm/wrist images: 1. Difficulty in bending/flexing the knee. Tender on the medial left knee with mild swelling but no redness Office Procedures Flu Questionnaire Does the patient have a severe egg allergy?: No Does the patient have severe life threatening allergies?: No Does the patient have a fever or illness today?: No Has the patient ever had Guillain-Oaks Syndrome?: No Has the patient ever had any past reaction to a flu shot?: No Immunizations Fluarix Triv [id number] (PF) 45 mcg (15 mcg x 3)/0.5 mL IM syringe Performing Provider: Steven Sanchez MD [facility] [place] [facility] Administered by: HOSEA Raya on 07/18/24 17:59 Dose Route Admin Location Dispensed Lot Number Expiration Date [facility] [employer] 0.5 mL IM Left Deltoid 0.5 mL [id number] 04/03/25 [id number] [employer] VIS Given Date VIS Provided VIS Publication Date 07/18/24 Single Vaccine 21 Eligibility Eligibility Date Funding Source Not [facility] Eligible 07/18/24 Private Coding Level of Care Code Est Pt Level 3 (49443) Diagnoses Left medial knee pain M25.562 Assessment & Plan Assessment & Plan (1) Left medial knee pain: Code(s): M25.562 - Pain in left knee Category: Medical Plan: X-ray requested, anti-inflammatory prescription sent in advised to take with food. Continue to use the knee brace. Orders: Orders XR knee LT 3V Today M25.562 - Pain in left knee Influenza [id number] Immunization Today Z23 - Encounter for immunization Medications: New Fluarix Triv [id number] (PF) (flu vacc [id number] 6mos up(PF)) 0.5 mL IM ONCE 0.5 mL 0RF NS Z23 - Encounter for immunization meloxicam 15 mg PO DAILY 30 tabs 0RF M25.562 - Pain in left knee
== END 2024-07-18 18:04 | disposition home or self-care (01) ==
PROVIDERS: PCP Internal Medicine; Visit Provider Internal Medicine
DX: Z23 Encounter for immunization (principal); M25.562 Pain in left knee

== ENCOUNTER → 2024-07-18 17:36 | Outpatient (BNVA) | payer BC, SELFPAY | PROVIDERS: PCP Internal Medicine; Visit Provider Internal Medicine | DX: M25.562 Pain in left knee (principal); Z23 Encounter for immunization | CPT/HCPCS: 90471; 90656 ==

== ENCOUNTER 2024-07-29 15:04 | Outpatient (REF) | payer BC, SELFPAY | END 2024-07-29 15:05 | disposition home or self-care (01) | LOC: HO.XRAY 15:04 | PROVIDERS: PCP Internal Medicine; Visit Provider Internal Medicine | DX: M25.562 Pain in left knee (principal) | CPT/HCPCS: 73562 ==

== ENCOUNTER 2024-11-04 12:48 | Outpatient (REF) | payer BC, SELFPAY ==
[2024-11-04 13:00] LABS: MANUAL DIFF FLAG NO
[2024-11-04 13:44] LABS: Basophils Absolute Auto 0.1 X10*3/uL (0.0-0.2); Basophils Percent Auto 1.1 % (0-2); Eosinophils Absolute Auto 0.4 X10*3/uL (0.0-0.4); Eosinophils Percent Auto 5.1 % (0-4); Hematocrit 44.2 % (42.0-52.0); Hemoglobin 14.5 g/dl (14.0-18.0); Imm Gran Abs Auto 0.03 X10*3/uL (0.00-0.03); Imm Gran Pct Auto 0.4 % (0.0-0.4); Lymphocytes Absolute Auto 2.4 X10*3/uL (1.2-4.9); Lymphocytes Percent Auto 32.6 % (20-40); Mean Corpuscular HGB Conc 32.8 g/dl (31.0-36.0); Mean Corpuscular Hemoglobin 29.2 pg (27.0-33.0); Mean Corpuscular Volume 88.9 fL (80.0-98.0); Mean Platelet Volume 11.3 fL (9.4-12.4); Monocytes Absolute Auto 0.5 X10*3/uL (0.1-1.2); Monocytes Percent Auto 7.2 % (2-11); Neutrophils Percent Auto 53.6 % (45-73); Platelet Count 206 X10*3/uL (160-400); Red Blood Count 4.97 X10*6/uL (4.60-5.80); Red Cell Distribution Width 13.1 % (11.0-16.0); White Blood Count 7.5 X10*3/uL (4.8-10.8)
[2024-11-04 14:26] LABS: Alanine Aminotransferase 26 U/L (0-40); Albumin Level 4.2 g/dL (3.5-5.0); Alkaline Phosphatase 65 U/L (39-117); Anion Gap 15 (12-20); Aspartate Amino Transferase 25 U/L (5-37); Bilirubin Total 0.5 mg/dL (0.0-1.0); Blood Urea Nitrogen 22 mg/dL (9-16); Calcium 9.8 mg/dL (8.4-10.2); Carbon Dioxide 26 mmol/L (22-29); Chloride 105 mmol/L (96-108); Estimated Glomerular Filt Rate > 60; Glucose Random 97 mg/dL (60-115); Sodium 141 mmol/L (135-145); Total Protein 7.4 g/dL (6.5-8.0)
[2024-11-04 14:31] LABS: Estimated Average Glucose 108 mg/dL; Free T4 (Free Thyroxine) 0.98 ng/dL (0.71-1.85); Hemoglobin A1C 134.2884 umol/L; Hemoglobin A1c % 5.4 % (<6.0); Thyroid Stimulating Hormone 1.38 uIU/mL (0.32-4.0); Total Hemoglobin (HGBA1C) 3753.4126 umol/L
== END 2024-11-04 12:49 | disposition home or self-care (01) ==
LOC: HO.LAB 12:48
PROVIDERS: PCP Internal Medicine; Visit Provider Internal Medicine
DX: E03.9 Hypothyroidism, unspecified (principal); R73.01 Impaired fasting glucose
CPT/HCPCS: 36415; 80053; 83036; 84439; 84443; 85025

== ENCOUNTER 2024-11-07 13:31 | Outpatient (AMB) | payer BC, SELFPAY ==
--- NOTE | 2024-11-07 13:42 | A.OFFPC_ITS ---
Vital Signs 11/07/24 13:45 Height 6 ft 3 in Weight 249 lb 2 oz BMI 31.1 BP 114/66 Blood Pressure Location Lt brachial Position Sitting Pulse 92 Pulse Source Pulse Oximeter Temp 96.9 F Temp Source Skin Pulse Oximetry (%) 90 L Oxygen Delivery Method Room Air Intake Visit Reasons: 3 Month Follow Up Intake Note: Patient is here to follow up on PVD, Hypercholesterolemia, Hypothyroidism. Manager Small Business Required: No Welding Supervisor: Not Required per policy Accompanied by: Self / Same As Patient Allergies codeine Allergy (Unknown, Verified 11/07/24 13:44) upset stomach Medication List - Last Reconciled 11/07/24 by Steven Sanchez MD atorvastatin 40 mg PO BEDTIME 90 days comp.stocking,thigh,long,large As directed 20-30 mm HG fluoxetine 20 mg PO DAILY ivermectin 22,600 mcg PO Q2W 2 doses levothyroxine 50 mcg PO DAILY 30 days lorazepam 1 mg PO BID PRN 30 days meloxicam 15 mg PO DAILY nicotine 1 patch transdermal DAILY nicotine 1 patch transdermal DAILY psyllium husk (Daily Fiber) 0.4 grams PO BEDTIME quetiapine 50 mg PO BEDTIME 30 days sildenafil 100 mg PO DAILY PRN Tobacco use date assessed: 11/07/24 Dental Screening Dental Screen Date: 11/07/24 Did you have a dental visit in the last 12 months?: No Did you have a dental problem in the last 6 months where you did not have access to dental care?: No Was dental information given to patient?: Patient has dentist HPI 3 Month Follow Up HPI Details oxygen sat sitting 91, on walking 89 sit back down 91 concern on low oxygen advised to stop smoking The patient is a 58-year-old male presenting with concerns about his respiratory health, primarily focusing on COPD and recent respiratory virus infections. He reports a long-standing history of cigarette smoking, initially consuming a pack and a half daily, now reduced to ten cigarettes per day. Despite efforts to reduce smoking, he has yet to quit entirely and plans to use nicotine patches. He experiences decreased oxygen saturation, with baseline oxygenation at 91%, exacerbated by cigarette smoking, which the patient is aware contributes to lung damage. There are discussions about previous lung function tests, which were performed a while ago with clear scans last year. He has been advised that further testing, including a lung function test and a CAT scan, is warranted. The patient also mentions vaccinations and preventative measures, stating he received a flu vaccination and acknowledges the concurrent presence of influenza, COVID-19, and RSV. In addition, the patient describes musculoskeletal knee pain that has hindered his mobility for over six months, impacting his walking regimen. His knee is gradually improving with the help of physical therapy interventions performed at home. Additionally, he reports an infestation episode from last year which was effecti vely treated with Ivermectin; however, symptoms seemed to recur upon exposure to stored clothing, prompting a request for the same treatment. [facility] Medical History (Updated 11/07/24 @ 13:58 by Steven Sanchez MD) Nicotine dependence, cigarettes, uncomplicated History of prostate cancer (~2011) Spinal stenosis Degenerative disc disease, lumbar Anxiety and depression Dry skin dermatitis Acquired hypothyroidism Pure hypercholesterolemia Head lice Surgical History History of vascular surgery History of colonoscopy History of prostate biopsy History of prostate surgery Family History Father Multiple myeloma Mother CVA (cerebral vascular accident) Uterine cancer Family/Other FH: mental illness Paternal Uncle Heart attack Brother Testicular cancer Renal cancer Ascending aortic aneurysm Social History Housing: Apartment Alcohol intake: current Comment: holiday 1-2 drinks Patient Tobacco Use Status: Current everyday Tobacco user Tobacco use type: Cigarette Cigarette Packs Per Day: 0.5 Cigarettes Per Day: 10 Years Smoked: (current smoker - onset 15yo, 3/4-1ppd x 42yrs, 35+PYH) e-Cigarette/Vaping Use: Never Used Second Hand Smoke Exposure: Yes service: No Current occupational status: retired Cognitive needs: No Hearing needs: No Vision needs: Yes Questionnaire PHQ-9 Over the last 2 weeks, how often have you been bothered by any of the following problems? 1. Little interest or pleasure in doing things: not at all 2. Feeling down, depressed, or hopeless: several days (Currently on medication) 3. Trouble falling or staying asleep, or sleeping too much: not at all 4. Feeling tired or having little energy: not at all 5. Poor appetite or overeating: not at all 6. Feeling bad about yourself - or that you are a failure or have let yourself or your family down: not at all 7. Trouble concentrating on things, such as reading the newspaper or watching television: not at all 8. Moving or speaking so slowly that other people could have noticed. Or the opposite - being so fidgety or restless that you have been moving around a lot more than usual: not at all 9. Thoughts that you would be better off or of hurting yourself in some way: not at all Total score: 1 Depression Screening Interpretation: Negative Depression Screening Done: Yes Source: Developed by Drs. Alek Daley, Deepali Patel, Juventino Dowell and colleagues, with an educational jocelyne from [employer]. Thrive Questionnaire Date Thrive assessed: 11/07/24 I am a: Patient What is your living situation today?: I have a steady place to live Within the past 12 months, did the food you bought not last and you didn't have the money to get more?: Never true Within the past 12 months, did you worry whether your food would run out before you got money to buy more?: Never true Do you have trouble paying for medicines?: No Do you have trouble getting transportation to medical appointments?: No Do you have trouble paying your heating and electricity bill?: No Do you have trouble taking care of your child, family member or friend?: No Do you have trouble with day-to-day activities such as bathing, preparing meals, shopping, managing finances, etc.?: No Are you currently unemployed and looking for a job?: No Are you interested in more education?: No Please select the resources that you would like help with: None Currently or been in a relationship where the following occur: No concerns reported THRIVE Score: 0 AUDIT C Alcohol Use Questionnaire (AUDIT-C) 1. How often do you have a drink containing alcohol?: Monthly or less 2. How many drinks containing alcohol do you have on a typical day when you are drinking?: 1 or 2 3. How often do you have six or more drinks on one occasion?: Never Total Score: 1 FORD-7 AMB Questionnaire FORD-7 Date FORD - 7 assessed: 11/07/24 Feeling nervous, anxious, or on edge: 0 = Not at all Not being able to stop or control worryin = Not at all Worrying too much about different things: 0 = Not at all Trouble relaxin = Not at all Being so restless that it is hard to sit still: 0 = Not at all Becoming easily annoyed or irritable: 0 = Not at all Feeling afraid as if something awful might happen: 0 = Not at all Total FORD-7 score (0-4 normal; 5-9 mild; 10-14 moderate; 15-21 severe): 0 Source: Developed by Drs. Alek Daley, Deepali Patel, Juventino Dowell and colleagues, with an educational jocelyne from [employer]. Physical exam (Primary Care) Vital Signs: Last Vital Signs Temp 96.9 F 11/07/24 13:45 BMI result Body Mass Index 31.1 Tobacco/Smoking Status: Tobacco use Status Tobacco use date assessed 05/16/24 11/07/24 13:43 Patient Tobacco Use Status Current everyday Tobacco 11/07/24 13:43 Tobacco use type Cigarette 11/07/24 13:43 e-Cigarette/Vaping Use Never Used 11/07/24 13:43 PHQ-9: PHQ-9 Score PHQ-9: Total score 0 11/07/24 13:43 Depression Screening Interpretation: Negative Thrive Assessment: Date of Thrive Assessment Date Thrive assessed 11/07/24 11/07/24 13:43 Currently or been in a relationship where the following occur: No concerns reported Const General: alert; No acute distress Eyes Conjunctivae: conjunctivae normal Resp Auscultation: clear to auscultation bilaterally Cardio Rate: regular rate Rhythm: regular rhythm GI Inspection: Yes normal to inspection Extrem General: Yes normal to inspection and No edema Coding Level of Care Code Est Pt Level 4 (79567) Diagnoses Pure hypercholesterolemia E78.00 Acquired hypothyroidism E03.9 Generalized anxiety disorder F41.1 Impaired fasting glucose R73.01 Obesity E66.9 History of prostate cancer Z85.46 Colonoscopy refused Z53.20 Hypoxemia R09.02 Head lice B85.0 Assessment & Plan Assessment & Plan (1) Pure hypercholesterolemia: Code(s): E78.00 - Pure hypercholesterolemia, unspecified Category: Medical (2) Acquired hypothyroidism: Code(s): E03.9 - Hypothyroidism, unspecified Category: Medical (3) Generalized anxiety disorder: Comment: decline referral 08/2022 Code(s): F41.1 - Generalized anxiety disorder Category: Medical (4) Impaired fasting glucose: Code(s): R73.01 - Impaired fasting glucose Category: Medical (5) Obesity: Code(s): E66.9 - Obesity, unspecified Category: Medical (6) History of prostate cancer: Onset Date: ~2011 Comment: (Adenocarcinoma - dx 2011 - s/p TURP 2012) Code(s): Z85.46 - Personal history of malignant neoplasm of prostate Category: Medical Plan: stable (7) Colonoscopy refused: Code(s): Z53.20 - Procedure and treatment not carried out because of patient's decision for unspecified reasons Category: Medical (8) Hypoxemia: Code(s): R09.02 - Hypoxemia Category: Medical Plan: will do PFt and awaiting CT. advised to stop smoking (9) Head lice: Comment: (recurrent) Code(s): B85.0 - Pediculosis due to Pediculus humanus capitis Category: Medical Plan - Encourage smoking cessation through continued use of nicotine patches. Discuss the pulmonary impact of smoking and emphasize the necessity to cease tobacco use permanently. - Plan for follow-up lung function testing and a CAT scan to assess the progression of COPD. - Advise preventative measures against respiratory viruses, including the flu vaccine, and career placement services counselor about protective practices during RSV and COVID-19 seasons. - Manage knee pain with continued physical therapy and monitor recovery to facilitate the resumption of regular walking exercises. - Prescribe Ivermectin for possible recurrent infestation, ensuring sufficient water intake and awareness of possible side effects. Offer alternative topical treatments if oral medication is ineffective. - Schedule follow-up to monitor all interventions and ensure optimal management of chronic conditions. Orders: Orders PFT pulmonary function test Today R09.02 - Hypoxemia Medications: New ivermectin 22,600 mcg PO Q2W 2 tabs 0RF B85.0 - Pediculosis due to Pediculus humanus capitis
[2024-11-07 13:45] VITALS: BP 114/66; PULSE 92; TEMP 36.1; O2SAT 90; BMI 31.1
== END 2024-11-07 14:04 | disposition home or self-care (01) ==
PROVIDERS: PCP Internal Medicine; Visit Provider Internal Medicine
DX: E78.00 Pure hypercholesterolemia, unspecified (principal); E66.9 Obesity, unspecified; E03.9 Hypothyroidism, unspecified; Z68.31 Body mass index [BMI] 31.0-31.9, adult; F41.1 Generalized anxiety disorder; R73.01 Impaired fasting glucose; Z85.46 Personal history of malignant neoplasm of prostate; Z53.20 Procedure and treatment not carried out because of patient's decision for unspecified reasons; R09.02 Hypoxemia; B85.0 Pediculosis due to Pediculus humanus capitis

== ENCOUNTER 2024-11-30 16:19 | Outpatient (REF) | payer BC, SELFPAY ==
--- NOTE | ~2024-11-30 | CT_ITS ---
CLINICAL HISTORY: F17.210 - Nicotine dependence, cigarettes, uncomplicated CT lung cancer screening (LDCT) Comparison: CT/DE/SR - CT LUNG SCREENING - 04/17/23 15:02 EDT Technique: Axial CT images of the chest using low-dose technique. Referring provider counseled the patient on shared decision-making for LDCT screening. Additional counseling was provided on smoking cessation. Effective radiation dose total: DLP 71.7 mGycm, CTDIvol 1.8 mGy. Findings: Pulmonary nodules: Stable parenchymal and perifissural pulmonary nodules are noted, the largest along the right major fissure, axial 103, measuring up to 8 mm. No new, increasing or suspicious nodule. Incidental pulmonary findings: Moderate centrilobular emphysema. Mild airway thickening. Scattered regions of scarring and/or atelectasis. Non pulmonary findings: Coronary artery calcifications: None Limited upper abdomen: Unremarkable Other: None Impression: LungRADS 2 - Benign Appearance: Continue annual screening with low dose Chest CT in 12 months. ##L2# Category 1: Normal; continue annual screening Category 2: Benign appearance or behavior, continue annual screening Category 3: Probably benign, [address] recommended Category 4A: Suspicious, [address] recommended; may consider PET/CT Category 4B: Suspicious, Additional diagnostics and/or tissue sampling recommended Category 4X: Suspicious, Additional diagnostics and/or tissue sampling recommended Category 0: Recalls (incomplete screen due to Incomplete coverage, Noise, Respiratory motion, Expiration, Obscured by acute abnormality) This document has been electronically signed by: Atif Tubbs MD on 12/01/2024 12:03:42
--- OUTSIDE RECORDS SUMMARY | 2024-11-30 19:41 | XMS_ITS | Patient Health Record ---
Author Organization [facility] Address [address] [place] [address] Care Team Providers Care Mortgage Closer Name Role Phone Steven Sanchez MD Primary Care Provider Alek Cat Unavailable [phone] REASON FOR REFERRAL No Information MEDICATIONS Medication SIG (Take, Route, Frequency, Duration) Notes Start Date End Date Status Cialis 10mg Active MoviPrep 100 GM as directed Orally o nce for 1 dose 09/16/2012 Active Zolpidem & Diet Manage Prod 10mg Active Probiotic 20mg Activ e LORazepam 1mg Active SOCIAL HISTORY Sex Assigned At : Social History Observation Description Sex Assigned At Unknown PROBLEMS Problem Type ICD Code Onset Dates Problem Status W/U Status Risk SNOMED Code Notes Problem Blood in stool (578.1) Active confirmed Blood in stool (738868943) Problem Constipation (564.00) Active confirmed Constipation (05689585) Encounters Encounter Location Date Provider Diagnosis [facility] [address] [place] [id number] 2023 Alek Atkinson PLAN OF TREATMENT Future Test Test Name Order Date COLONOSCOPY 09/16/2012 Insurance Providers Payer Name Payer Address Payer Phone Subscriber Number Group Number Insured Name Patient Relationship to Insured Coverage Start Date Coverage End Date [facility] [address] [place] [phone] [id number] SOUMYA MORTENSEN Self - patient is the insured MEDICAL (GENERAL) HISTORY Medical History History ICD Code Prostate cancer-had laparosc opic prostatectomy in 05/2012 at [facility] in [place] with Dr. Saúl Pineda [place],DM,CVA,Lung disease,renal dise ase Back problems-spinal stenosis-s/p epidur al injections Surgical History Surgery Date(Month/Year) Prostatectomy as above [address] Kirkland by magy jamison in [place] [address]
--- OUTSIDE RECORDS SUMMARY | 2024-11-30 19:42 | XMS_ITS ---
Author Organization [facility] Address [address] [place] [address] Care Team Providers Care Loin Trimmer Name Role Phone Po Steven PIERCE Primary Care Provider Alek Cat Unavailable [phone] REASON FOR VISIT to schedule a referral appt from pcp office Encounters Encounter Location Date Provider Diagnosis [facility] [address] [place] [address] 2023 Alek Atkinson PLAN OF TREATMENT No Information
== END 2024-11-30 16:20 | disposition home or self-care (01) ==
LOC: HO.CT 16:19
PROVIDERS: PCP Internal Medicine; Visit Provider Physician Assistant Medical
DX: Z12.2 Encounter for screening for malignant neoplasm of respiratory organs (principal); F17.210 Nicotine dependence, cigarettes, uncomplicated
CPT/HCPCS: 71271

== ENCOUNTER → 2024-11-30 16:20 | Outpatient (BNV) | payer BC, SELFPAY | PROVIDERS: PCP Internal Medicine; Visit Provider Radiology Vascular & Interventional Radiology | DX: F17.210 Nicotine dependence, cigarettes, uncomplicated (principal) | CPT/HCPCS: 71271 ==

== ENCOUNTER 2025-05-05 14:45 | Outpatient (AMB) | payer BC, SELFPAY ==
[2025-05-05 14:47] VITALS: BP 128/84; PULSE 111; O2SAT 95; BMI 29.8
--- NOTE | 2025-05-05 14:47 | A.OFFPC_ITS ---
Vital Signs 05/05/25 14:47 Height 6 ft 3 in Weight 238 lb 1.588 oz BMI 29.8 BP 128/84 Blood Pressure Location Lt brachial Position Sitting Pulse 111 H Pulse Source Pulse Oximeter Pulse Oximetry (%) 95 Oxygen Delivery Method Room Air Intake Visit Reasons: 3 Month Follow Up Industrial Safety And Health Technician Required: No Accompanied by: Self / Same As Patient Allergies codeine Allergy (Unknown, Verified 05/05/25 14:48) upset stomach Medication List - Last Reconciled 05/05/25 by Steven Sanchez MD atorvastatin 40 mg PO BEDTIME 90 days comp.stocking,thigh,long,large As directed 20-30 mm HG fluoxetine 20 mg PO DAILY ivermectin 45,200 mcg PO Q2W 2 doses levothyroxine 50 mcg PO DAILY 30 days lorazepam 1 mg (2 x 0.5 mg) PO BID PRN 30 days meloxicam 15 mg PO DAILY nicotine 1 patch transdermal DAILY nicotine 1 patch transdermal DAILY psyllium husk (Daily Fiber) 0.4 grams PO BEDTIME quetiapine 50 mg PO BEDTIME 30 days sildenafil 100 mg PO DAILY PRN Tobacco use date assessed: 05/05/25 Dental Screening Dental Screen Date: 05/05/25 Did you have a dental visit in the last 12 months?: Yes Did you have a dental problem in the last 6 months where you did not have access to dental care?: No Was dental information given to patient?: Patient has dentist HPI 3 Month Follow Up HPI Details fall 6 months ago L knee pain - pops and swell PFSH Medical History (Updated 05/05/25 @ 15:42 by Steven Sanchez MD) Nicotine dependence, cigarettes, uncomplicated History of prostate cancer (~2011) Spinal stenosis Degenerative disc disease, lumbar Anxiety and depression Dry skin dermatitis Acquired hypothyroidism Pure hypercholesterolemia Head lice Surgical History History of vascular surgery History of colonoscopy History of prostate biopsy History of prostate surgery Family History Father Multiple myeloma Mother CVA (cerebral vascular accident) Uterine cancer Family/Other FH: mental illness Paternal Uncle Heart attack Brother Testicular cancer Renal cancer Ascending aortic aneurysm Social History Housing: Apartment Alcohol intake: current Comment: holiday 1-2 drinks Patient Tobacco Use Status: Current everyday Tobacco user Tobacco use type: Cigarette Cigarette Packs Per Day: 0.5 Cigarettes Per Day: 10 Years Smoked: (current smoker - onset 15yo, 3/4-1ppd x 42yrs, 35+PYH) e-Cigarette/Vaping Use: Never Used Second Hand Smoke Exposure: Yes service: No Current occupational status: retired Cognitive needs: No Hearing needs: No Vision needs: Yes Questionnaire PHQ-9 Over the last 2 weeks, how often have you been bothered by any of the following problems? 1. Little interest or pleasure in doing things: more than half the days 2. Feeling down, depressed, or hopeless: several days 3. Trouble falling or staying asleep, or sleeping too much: several days 4. Feeling tired or having little energy: more than half the days 5. Poor appetite or overeating: not at all 6. Feeling bad about yourself - or that you are a failure or have let yourself or your family down: not at all 7. Trouble concentrating on things, such as reading the newspaper or watching television: not at all 8. Moving or speaking so slowly that other people could have noticed. Or the opposite - being so fidgety or restless that you have been moving around a lot more than usual: not at all 9. Thoughts that you would be better off or of hurting yourself in some way: not at all Total score: 6 Source: Developed by Drs. Alek Daley, Deepali Patel, Juventino Dowell and colleagues, with an educational jocelyne from [employer]. Thrive Questionnaire Date Thrive assessed: 05/05/25 I am a: Patient What is your living situation today?: I have a steady place to live Within the past 12 months, did the food you bought not last and you didn't have the money to get more?: Never true Within the past 12 months, did you worry whether your food would run out before you got money to buy more?: Never true Do you have trouble paying for medicines?: No Do you have trouble getting transportation to medical appointments?: No Do you have trouble paying your heating and electricity bill?: No Do you have trouble taking care of your child, family member or friend?: No Do you have trouble with day-to-day activities such as bathing, preparing meals, shopping, managing finances, etc.?: Yes Are you currently unemployed and looking for a job?: I choose not to answer this question Are you interested in more education?: I choose not to answer this question Please select the resources that you would like help with: None Currently or been in a relationship where the following occur: No concerns reported THRIVE Score: 0 AUDIT C Alcohol Use Questionnaire (AUDIT-C) 1. How often do you have a drink containing alcohol?: 2-4 times a month 2. How many drinks containing alcohol do you have on a typical day when you are drinking?: 1 or 2 3. How often do you have six or more drinks on one occasion?: Never Total Score: 2 FORD-7 AMB Questionnaire FORD-7 Date FORD - 7 assessed: 05/05/25 Feeling nervous, anxious, or on edge: 2 = More than half the days Not being able to stop or control worryin = More than half the days Worrying too much about different things: 1 = Several days Trouble relaxin = Several days Being so restless that it is hard to sit still: 0 = Not at all Becoming easily annoyed or irritable: 0 = Not at all Feeling afraid as if something awful might happen: 0 = Not at all Total FORD-7 score (0-4 normal; 5-9 mild; 10-14 moderate; 15-21 severe): 6 Source: Developed by Drs. Alek Daley, Deepali Patel, Juventino Dowell and colleagues, with an educational jocelyne from [employer]. Physical exam (Primary Care) Vital Signs: Last Vital Signs Pulse 111 H 05/05/25 14:47 BP 128/84 05/05/25 14:47 Pulse Ox 95 05/05/25 14:47 Oxygen Delivery Method Room Air 05/05/25 14:47 BMI result Body Mass Index 29.8 Tobacco/Smoking Status: Tobacco use Status Tobacco use date assessed 05/05/25 05/05/25 14:55 Patient Tobacco Use Status Current everyday Tobacco 05/05/25 14:55 Tobacco use type Cigarette 05/05/25 14:55 e-Cigarette/Vaping Use Never Used 05/05/25 14:55 PHQ-9: PHQ-9 Score PHQ-9: Total score 6 05/05/25 15:42 Thrive Assessment: Date of Thrive Assessment Date Thrive assessed 05/05/25 05/05/25 14:55 Currently or been in a relationship where the following occur: No concerns reported Const General: alert; No acute distress Eyes Conjunctivae: conjunctivae normal Resp Auscultation: clear to auscultation bilaterally Cardio Rate: regular rate Rhythm: regular rhythm GI Inspection: Yes normal to inspection Extrem General: Yes normal to inspection and No edema Coding Level of Care Code Est Pt Level 4 (04978) Complex EM visit Add On G2211 Diagnoses Pure hypercholesterolemia E78.00 Impaired fasting glucose R73.01 Acquired hypothyroidism E03.9 Overweight (BMI 25.0-29.9) E66.3 History of prostate cancer Z85.46 Nicotine dependence, cigarettes, uncomplicated F17.210 Left medial knee pain M25.562 Head lice B85.0 Assessment & Plan Assessment & Plan (1) Pure hypercholesterolemia: Code(s): E78.00 - Pure hypercholesterolemia, unspecified Category: Medical Plan: Avoid fried foods, chicken skin, eggs, butter margarine, pastries and meat. Be it pork or beef they have a lot of cholesterol on atorvastatin 40 mg once a day (2) Impaired fasting glucose: Code(s): R73.01 - Impaired fasting glucose Category: Medical Plan: Decrease the amount of carbohydrate intake, pasta, bread, rice and potatoes are all sugar and that is aside from all the sweet stuff, remember that fruits are good but they are Sweet also. (3) Acquired hypothyroidism: Code(s): E03.9 - Hypothyroidism, unspecified Category: Medical Plan: Continue with thyroid medication (4) Overweight (BMI 25.0-29.9): Code(s): E66.3 - Overweight Category: Medical Plan: diet and exercise (5) History of prostate cancer: Onset Date: ~2011 Comment: (Adenocarcinoma - dx 2012 - s/p TURP 2012) Code(s): Z85.46 - Personal history of malignant neoplasm of prostate Category: Medical Plan: Continue to follow-up with urology (6) Nicotine dependence, cigarettes, uncomplicated: Comment: (current smoker - onset 15yo, 3/4-1ppd x 42yrs, 35+PYH) CT scan done April Code(s): F17.210 - Nicotine dependence, cigarettes, uncomplicated Category: Medical Plan: Patient enrolled in lung cancer screening program November 2024 (7) Left medial knee pain: Code(s): M25.562 - Pain in left knee Category: Medical (8) Head lice: Comment: (recurrent) Code(s): B85.0 - Pediculosis due to Pediculus humanus capitis Category: Medical Plan History of Present Illness The patient is a 59-year-old male presenting for follow-up care and management of multiple chronic conditions. The patient has a history of hypercholesterolemia and is currently on atorvastatin 40 mg once daily. His last cholesterol test was conducted in May 2024, showing elevated triglycerides at 234 mg/dL. The patient has been diagnosed with hypothyroidism and continues to take thyroid medication. His thyroid function was reported as normal in recent evaluations. The patient has generalized anxiety disorder and is currently prescribed lorazepam, which is due for a refill. The patient has a history of impaired glucose tolerance and is advised to maintain diet and exercise. The patient was diagnosed with prostate cancer in 2012 and continues to follow up with urology. The patient is a smoker, which is a significant risk factor for his health conditions. The patient reports knee pain with swelling and popping, which has been persistent and affects his mobility. An x-ray was previously conducted and reported as normal, and an MRI has been ordered for further evaluation. The patient reports a persistent lice infestation, which has been difficult to manage with [id number] treatments. He has consulted a pharmacist and a conference planning manager, and a higher dose of ivermectin has been prescribed. Health Maintenance - Lung cancer screening program enrollment - Blood work including cholesterol and prostate-specific antigen (PSA) levels Social History - Tobacco use: Patient is a smoker - Exercise: Limited due to knee pain, uses crutches at home Review of Systems - Musculoskeletal: Reports knee pain with swelling and popping - Integumentary: Reports persistent lice infestation - Respiratory: Denies dyspnea, reports normal oxygen saturation levels during activity Physical Exam Results - Labs: Normal blood count, normal electrolytes, normal renal function, normal liver function, normal thyroid function - Imaging: Chest CT scan in November 2024 for lung cancer screening - Imaging: Knee x-ray reported as normal Plan The patient will continue on atorvastatin 40 mg daily for hypercholesterolemia management, with a recommendation for repeat cholesterol testing due to previously elevated triglycerides. For hypothyroidism, the patient will maintain current thyroid medication as thyroid function is normal. The patient will continue lorazepam for generalized anxiety disorder, with a refill provided during the visit. Diet and exercise are advised for impaired glucose tolerance, with emphasis on lifestyle modifications. The patient will follow up with urology for prostate cancer surveillance and undergo PSA testing as part of routine monitoring. An MRI of the knee has been ordered to further evaluate persistent pain and swelling, following a normal x-ray result. For the lice infestation, a higher dose of ivermectin has been prescribed, following consultation with a pharmacist and conference planning manager. Patient was informed and verbally consented to the use of an ambient scribe for clinic note documentation during this visit. Discussion Notes During the visit, we discussed the management of hypercholesterolemia with atorvastatin and the need for repeat cholesterol testing due to elevated triglycerides. We reviewed the patient's thyroid function, which is stable, and continued the current medication regimen. The patient was advised to maintain diet and exercise for glucose tolerance and to continue lorazepam for anxiety management. We discussed the need for ongoing urology follow-up for prostate cancer and the importance of PSA testing. An MRI was ordered to further investigate knee pain, and a higher dose of ivermectin was prescribed for lice infestation. Patient Instructions - Continue taking atorvastatin 40 mg daily. - Schedule a repeat cholesterol test. - Maintain current thyroid medication. - Follow a healthy diet and exercise regularly. - Continue lorazepam as prescribed. - Follow up with urology for prostate cancer monitoring. - Undergo MRI for knee evaluation. - Use prescribed ivermectin for lice treatment. Orders: Orders MR knee LT wo con Today M25.562 - Pain in left knee Thyroid Stimulating Hormone Today R73.01 - Impaired fasting glucose Vitamin B12 and Folate Today R73.01 - Impaired fasting glucose Free T4 (Free Thyroxine) Today R73.01 - Impaired fasting glucose Hemoglobin A1c Today R73.01 - Impaired fasting glucose Comprehensive Met. Panel Today R73.01 - Impaired fasting glucose Complete Blood Count Auto Diff Today R73.01 - Impaired fasting glucose Lipid Panel Today E78.00 - Pure hypercholesterolemia, unspecified, R73.01 - Impaired fasting glucose Prostate Specific Antigen Scr Today R73.01 - Impaired fasting glucose Medications: Changed From ivermectin 22,600 mcg PO Q2W 2 tabs 0RF B85.0 - Pediculosis due to Pediculus humanus capitis To ivermectin 45,200 mcg PO Q2W 2 tabs 0RF 2 doses B85.0 - Pediculosis due to Pediculus humanus capitis Refilled meloxicam 15 mg PO DAILY 30 tabs 0RF M25.562 - Pain in left knee
--- OUTSIDE RECORDS SUMMARY | 2025-05-05 14:47 | XMS_ITS | Patient Health Record ---
Author Organization [facility] Address [address] [place] [address] Care Team Providers Care Machine Assistant Name Role Phone Po Steven PIERCE Primary Care Provider Alek Cat Unavailable [phone] Reason For Referral No Information Medications Medication SIG (Take, Route, Frequency, Duration) Notes Start Date End Date Status Cialis 10mg Active MoviPrep 100 GM as directed Orally o nce for 1 dose 09/16/2012 Active Zolpidem & Diet Manage Prod 10mg Active Probiotic 20mg Activ e LORazepam 1mg Active Problems Problem Type SNOMED Code ICD Code Onset Dates Problem Status W/U Status Risk Notes Problem Blood in stool (925793955) Blood in stool (578.1) Active confirmed Problem Constipation (564.00) Active confirmed Plan Of Treatment Future Test Test Name Order Date COLONOSCOPY 09/16/2012 Insurance Providers Payer Name Payer Address Payer Phone Subscriber Number Group Number Insured Name Patient Relationship to Insured Coverage Start Date Coverage End Date [facility] [address] [place] [phone] [id number] SOUMYA MORTENSEN Self - patient is the insured Medical (General) History Medical History History ICD Code Prostate cancer-had laparosc opic prostatectomy in 05/[address] [facility] in [place] with Dr. Saúl Pineda [place],DM,CVA,Lung disease,renal dise ase Back problems-spinal stenosis-s/p epidur al injections Surgical History Surgery Date(Month/Year) Prostatectomy as above [address] Kirkland by laser s yaquelin in [facility] 2006
== END 2025-05-05 15:57 | disposition home or self-care (01) ==
LOC: HO.HMCH 14:45
PROVIDERS: PCP Internal Medicine; Visit Provider Internal Medicine
DX: E78.00 Pure hypercholesterolemia, unspecified (principal); R73.01 Impaired fasting glucose; E03.9 Hypothyroidism, unspecified; E66.3 Overweight; Z85.46 Personal history of malignant neoplasm of prostate; F17.210 Nicotine dependence, cigarettes, uncomplicated; M25.562 Pain in left knee; B85.0 Pediculosis due to Pediculus humanus capitis

== ENCOUNTER 2025-08-09 08:31 | Outpatient (REF) | payer BC, SELFPAY ==
--- OUTSIDE RECORDS SUMMARY | 2025-08-10 09:00 | XMS_ITS | Patient Health Record ---
Author Organization [facility] Address [address] [place] [address] Care Team Providers Care Utilization Management Nurse Name Role Phone Po Steven PIERCE Primary Care Provider Alek Cat Unavailable [phone] Reason For Referral No Information Medications Medication [...] Status Risk Notes Problem Blood in stool (530241497) Blood in stool (578.1) Active confirmed Problem Constipation (04976074) Constipation (564.00) Active confirmed Plan Of Treatment Future Test Test Name Order Date COLONOSCOPY 09/16/2012 Insurance Providers Payer Name Payer Address Payer Phone Subscriber Number Group Number Insured Name Patient Relationship to Insured Coverage Start Date Coverage End Date [facility] [address] [place] [phone] [id number] SOUMYA MORTENSEN Self - patient is the insured Medical (General) History Medical History History ICD Code Prostate cancer-had laparosc opic prostatectomy in 05/2012 at [facility] in [place] with Dr. Saúl Pineda [place],DM,CVA,Lung disease,renal dise ase Back problems-spinal stenosis-s/p epidur al injections Surgical History Surgery Date(Month/Year) Prostatectomy as above [address] Kirkland by laser fabiola jamison in [facility] 2006
== END 2025-08-09 08:32 | disposition home or self-care (01) ==
LOC: HO.HOSX 08:31
PROVIDERS: Visit Provider Orthopaedic Surgery
DX: Z13.89 Encounter for screening for other disorder (principal)

== ENCOUNTER 2025-08-09 12:51 | Outpatient (AMB) | payer BC, SELFPAY ==
--- NOTE | 2025-08-09 13:10 | A.OFFVIS_ITS ---
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 The patient states that he injured his left knee approximately 9 months ago when he fell down several stairs. He twisted his left knee and had acute onset of pain. Most of the pain is along the medial aspect of his knee. He states that his left knee will give out several times per day. He has failed the last 6 weeks of conservative treatment which has included Tylenol, anti-inflammatory medicines, physical therapy exercises and a home exercise program. He states that at this point his left knee pain and mechanical symptoms are interfering with his activities of daily living and his ability to sleep well through the night. Allergies codeine Allergy (Unknown, Verified 08/09/25 13:13) upset stomach Medication List - Last Reconciled 08/09/25 by Facundo Prater MD atorvastatin 40 mg PO BEDTIME 90 days comp.stocking,thigh,long,large As directed 20-30 mm HG fluoxetine 20 mg PO DAILY ivermectin 3 mg PO Q2W 2 doses levothyroxine 50 mcg PO DAILY 30 days lorazepam 1 mg (2 x 0.5 mg) PO BID PRN 30 days meloxicam 15 mg PO DAILY nicotine 1 patch transdermal DAILY nicotine 1 patch transdermal DAILY psyllium husk (Daily Fiber) 0.4 grams PO BEDTIME quetiapine 50 mg PO BEDTIME 30 days sildenafil 100 mg PO DAILY PRN [facility] Medical History Nicotine dependence, cigarettes, uncomplicated History of prostate cancer (~2011) Spinal stenosis Degenerative disc disease, lumbar Anxiety and depression Dry skin dermatitis Acquired hypothyroidism Pure hypercholesterolemia Head lice Surgical History History of vascular surgery History of colonoscopy History of prostate biopsy History of prostate surgery Family History Father Multiple myeloma Mother CVA (cerebral vascular accident) Uterine cancer Family/Other FH: mental illness Paternal Uncle Heart attack Brother Testicular cancer Renal cancer Ascending aortic aneurysm Social History Housing: Apartment Alcohol intake: current Comment: holiday 1-2 drinks Patient Tobacco Use Status: Current everyday Tobacco user Tobacco use type: Cigarette Cigarette Packs Per Day: 0.5 Cigarettes Per Day: 10 Years Smoked: (current smoker - onset 15yo, 3/4-1ppd x 42yrs, 35+PYH) e-Cigarette/Vaping Use: Never Used Second Hand Smoke Exposure: Yes service: No Current occupational status: retired Cognitive needs: No Hearing needs: No Vision needs: Yes Physical Exam Const Other: Well-nourished well-developed very friendly male awake alert and oriented x3 in no acute distress Extrem Other: Left knee examination shows a minimal effusion, mild crepitus with range of motion, tenderness along his medial joint line, positive Yoav's test, no instability Results Reviewed Results Reviewed: Standing full weight-bearing X-rays of the patient's left knee show mild diffuse joint space narrowing, no acute bony abnormalities Assessment & Plan Assessment & Plan (1) Tear of medial meniscus of left knee: Code(s): S83.242A - Other tear of medial meniscus, current injury, left knee, initial encounter Category: Medical Plan Micky presents with left knee pain and mechanical symptoms most likely due to a medial meniscus tear. Thus, I will send the patient for an MRI of his left knee for further evaluation. I will see him back once the MRI is completed to discuss the findings and treatment options. Feel free to call me at any time should questions regarding his orthopedic management arise. Thank you very much for asking me to see this very friendly gentleman. I spent 21 minutes in reviewing the patient's records and imaging studies, seeing the patient and documenting in the medical record. Orders: Orders XR knee LT 3V 08/09/25 M25.562 - Pain in left knee MR knee LT wo con Today S83.242A - Other tear of medial meniscus, current injury, left knee, initial encounter Coding Level of Care Code New Pt Level 3 (91208) Complex EM visit Add On G2211 Diagnoses Tear of medial meniscus of left knee S83.242A
--- OUTSIDE RECORDS SUMMARY | 2025-08-09 15:34 | XMS_ITS | Patient Health Record ---
Author Organization [facility] Address [address] [place] [address] Care Team Providers Care Clinic Scheduler Name Role Phone Po Steven PIERCE Primary Care Provider Alek Cat Unavailable [phone] Reason For Referral No Information Medications Medication SIG (Take, Route, Frequency, Duration) Notes Start Date End Date Status Cialis 10mg Active MoviPrep 100 GM as directed Orally o nce; Duration: 1 dose 09/16/2012 Active Zolpidem & Diet Manage Prod 10mg Active Probiotic 20mg Activ e LORazepam 1mg Active Problems Problem Type SNOMED Code ICD Code Onset Dates Problem Status W/U Status Risk Notes Problem Blood in stool (882154742) Blood in stool (578.1) Active confirmed Problem Constipation (70091901) Constipation (564.00) Active confirmed Plan Of Treatment Future Test Test Name Order Date COLONOSCOPY 09/16/2012 Insurance Providers Payer Name Payer Address Payer Phone Subscriber Number Group Number Insured Name Patient Relationship to Insured Coverage Start Date Coverage End Date [facility] [address] [place] [phone] [id number] SOUMYA MORTENSEN Self - patient is the insured Medical (General) History Medical History History ICD Code Prostate cancer-had laparosc opic prostatectomy in 05/2012 at [facility] in [place] with Dr. Saúl Pineda [place],DM,CVA,Lung disease,renal dise ase Back problems-spinal stenosis-s/p epidur al injections Surgical History Surgery Date(Month/Year) Prostatectomy as above [address] Kirkland by laser fabiola jamison in [facility] 2006
== END 2025-08-09 13:29 | disposition home or self-care (01) ==
LOC: HO.HOS 12:52
PROVIDERS: PCP Internal Medicine; Visit Provider Orthopaedic Surgery
DX: S83.242A Other tear of medial meniscus, current injury, left knee, initial encounter (principal)
CPT/HCPCS: 99203

== ENCOUNTER 2025-09-20 14:45 | Outpatient (AMB) | payer BC, SELFPAY ==
--- NOTE | 2025-09-20 14:49 | MHC.PC.OV ---
Vital Signs 09/20/25 14:50 Height 6 ft 3 in Weight 248 lb BMI 31.0 BP 100/54 L Blood Pressure Location Lt brachial Position Sitting Respiration 18 Pulse 85 Pulse Source Pulse Oximeter Temp 97.5 F Temp Source Temporal Artery Scan Pulse Oximetry (%) 94 Oxygen Delivery Method Room Air Intake Visit Reasons: ford knee pain Ancillary Specialist Required: No Accompanied by: Self / Same As Patient Allergies codeine Allergy (Unknown, Verified 09/20/25 14:50) upset stomach Medication List - Last Reconciled 09/20/25 by Steven Sanchez MD atorvastatin 40 mg PO BEDTIME 90 days comp.stocking,thigh,long,large As directed 20-30 mm HG fluoxetine 20 mg PO DAILY ivermectin 3 mg PO Q2W PRN levothyroxine 50 mcg PO DAILY 30 days lorazepam 1 mg (2 x 0.5 mg) PO BID PRN 30 days meloxicam 15 mg PO DAILY nicotine 1 patch transdermal DAILY psyllium husk (Daily Fiber) 0.4 grams PO BEDTIME sildenafil 100 mg PO DAILY PRN Tobacco use date assessed: 05/05/25 Dental Screening Dental Screen Date: 05/05/25 HPI HPI Comments History of Present Illness Details History of Present Illness The patient is a 59-year-old obese male presenting for a follow-up visit. He reports a 10-pound weight gain since his last visit in May. His past medical history is significant for hypercholesterolemia, hypothyroidism, generalized anxiety disorder, impaired glucose tolerance, and prostate cancer in 2012. For his left knee pain, the patient has been following up with orthopedics and was diagnosed with a tear of the medial meniscus. An MRI was ordered by his specialist, but the appointment has not yet been scheduled. The patient reports a persistent lice infestation for nearly two years. He previously saw a typewriters functional tester and was treated with a low dose of ivermectin, which did not resolve the issue. He recently weaned himself off quetiapine for sleep and now requests a medical or surgical instrument maker alternative for insomnia. He attributes his chronic sleep issues to his 32-year career with the [employer], which disrupted his sleep cycle. He is a current smoker but has reduced his intake to eight cigarettes per day and is enrolled in a lung cancer screening program. He has declined colonoscopy. His last comprehensive blood work was in October, and he has not completed the recent orders. Health Maintenance The patient will receive an influenza vaccine today. He continues to decline a colonoscopy. He should schedule a physical exam within the next three months, for which new blood work has been ordered. Social History - Tobacco Use: Current smoker, consumes 8 cigarettes per day. - Nutritional Intake: Discussion included diet and exercise. - Weight Management: Patient reports a 10-pound weight gain since May. 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 Results - Imaging: A prior MRI of the left knee revealed a tear of the medial meniscus. ON LICENSE OF [facility] Medical History (Updated 09/19/25 @ 09:47 by Ammy Gamble PA-C) Nicotine dependence, cigarettes, uncomplicated History of prostate cancer (~2011) Spinal stenosis Degenerative disc disease, lumbar Anxiety and depression Dry skin dermatitis Acquired hypothyroidism Pure hypercholesterolemia Head lice Surgical History History of vascular surgery History of colonoscopy History of prostate biopsy History of prostate surgery Family History Father Multiple myeloma Mother CVA (cerebral vascular accident) Uterine cancer Family/Other FH: mental illness Paternal Uncle Heart attack Brother Testicular cancer Renal cancer Ascending aortic aneurysm Social History Housing: Apartment Alcohol intake: current Comment: holiday 1-2 drinks Patient Tobacco Use Status: Current everyday Tobacco user Tobacco use type: Cigarette Cigarette Packs Per Day: 0.5 Cigarettes Per Day: 10 Years Smoked: (current smoker - onset 15yo, 3/4-1ppd x 42yrs, 35+PYH) Packs Per Year: 0 Packs per year/per ci.00 e-Cigarette/Vaping Use: Never Used Second Hand Smoke Exposure: Yes service: No Current occupational status: retired Cognitive needs: No Hearing needs: No Vision needs: Yes Questionnaire Thrive Questionnaire Date Thrive assessed: 05/05/25 I am a: Patient What is your living situation today?: I have a steady place to live Within the past 12 months, did the food you bought not last and you didn't have the money to get more?: Never true Within the past 12 months, did you worry whether your food would run out before you got money to buy more?: Never true Do you have trouble paying for medicines?: No Do you have trouble getting transportation to medical appointments?: No Do you have trouble paying your heating and electricity bill?: No Do you have trouble taking care of your child, family member or friend?: No Do you have trouble with day-to-day activities such as bathing, preparing meals, shopping, managing finances, etc.?: Yes Are you currently unemployed and looking for a job?: I choose not to answer this question Are you interested in more education?: I choose not to answer this question Please select the resources that you would like help with: None Currently or been in a relationship where the following occur: No concerns reported THRIVE Score: 0 FORD-7 AMB Questionnaire FORD-7 Date FORD - 7 assessed: 05/05/25 Source: Developed by Drs. Alek Daley, Deepali Patel, Juventino Dowell and colleagues, with an educational jocelyne from [employer]. Review of Systems Narrative Review of Systems - Constitutional: Reports a 10-pound weight gain. - Integumentary: Reports persistent lice infestation for almost two years. - Musculoskeletal: Reports left knee pain. - Neurological: Reports insomnia. - Psychiatric: History of generalized anxiety disorder. Physical exam (Primary Care) BMI result Body Mass Index 31.0 Tobacco/Smoking Status: Tobacco use Status Tobacco use date assessed 05/05/25 09/20/25 14:56 Patient Tobacco Use Status Current everyday Tobacco 09/20/25 14:56 Tobacco use type Cigarette 09/20/25 14:56 e-Cigarette/Vaping Use Never Used 09/20/25 14:56 Thrive Assessment: Date of Thrive Assessment Date Thrive assessed 05/05/25 09/20/25 14:56 Currently or been in a relationship where the following occur: No concerns reported Narrative Physical Exam - Vitals: Weight is approximately 240 lbs. - Height is 6'3 . - General: Patient is an obese male. - Head/Integumentary: Visual evidence of lice infestation noted. Const General: alert; No acute distress Eyes Conjunctivae: conjunctivae normal Resp Auscultation: clear to auscultation bilaterally Cardio Rate: regular rate Rhythm: regular rhythm GI Inspection: Yes normal to inspection Extrem General: Yes normal to inspection and No edema Coding Level of Care Code Est Pt Level 4 (01470) Diagnoses Impaired fasting glucose R73.01 Acquired hypothyroidism E03.9 Obesity E66.9 Generalized anxiety disorder F41.1 History of prostate cancer Z85.46 Tear of medial meniscus of left knee S83.242A Nicotine dependence, cigarettes, uncomplicated F17.210 Assessment & Plan Assessment & Plan (1) Impaired fasting glucose: Code(s): R73.01 - Impaired fasting glucose Category: Medical Plan: Decrease the amount of carbohydrate intake, pasta, bread, rice and potatoes are all sugar and that is aside from all the sweet stuff, remember that fruits are good but they are Sweet also. Will request for no blood work (2) Acquired hypothyroidism: Code(s): E03.9 - Hypothyroidism, unspecified Category: Medical Plan: Continue with thyroid medication blood work requested (3) Obesity: Code(s): E66.9 - Obesity, unspecified Category: Medical Plan: Diet and exercise (4) Generalized anxiety disorder: Comment: decline referral 08/2022 Code(s): F41.1 - Generalized anxiety disorder Category: Medical Plan: Continue with present medication on fluoxetine and lorazepam (5) History of prostate cancer: Onset Date: ~2011 Comment: (Adenocarcinoma - dx 2011 - s/p TURP 2012) Code(s): Z85.46 - Personal history of malignant neoplasm of prostate Category: Medical Plan: Continue to monitor (6) Tear of medial meniscus of left knee: Code(s): S83.242A - Other tear of medial meniscus, current injury, left knee, initial encounter Category: Medical Plan: Patient has been seen by ortho and planned MRI (7) Nicotine dependence, cigarettes, uncomplicated: Comment: (current smoker - onset 15yo, 3/4-1ppd x 42yrs, 35+PYH) CT scan done April Code(s): F17.210 - Nicotine dependence, cigarettes, uncomplicated Category: Medical Plan: Patient is strongly advised to stop smoking. Patient is in the lung cancer screening program Plan Plan Patient was informed and verbally consented to the use of an ambient scribe for clinic note documentation during this visit. 1. Impaired Glucose Tolerance, Hypothyroidism, And Hypercholesterolemia A request for new blood work will be placed to monitor these conditions. The patient is advised to continue his thyroid medication and to focus on diet and exercise. 2. Generalized Anxiety Disorder The patient will continue his current medications, fluoxetine and lorazepam, and will be monitored. 3. Tear Of Medial Meniscus Of Left Knee The patient is under the care of orthopedics and is awaiting scheduling for a planned MRI. Meloxicam was prescribed for pain, to be used as needed with food. 4. Pediculosis Due to treatment failure with a lower dose, a new prescription for ivermectin will be sent to the pharmacy. The patient will receive four 3 mg tablets and is instructed to take two tablets (6 mg) now and two tablets in two weeks. 5. Insomnia After the patient self-discontinued quetiapine, doxylamine was prescribed for as-needed use to aid with sleep. 6. Tobacco Use Disorder The patient was strongly advised to stop smoking. He is currently enrolled in the lung cancer screening program. Discussion Notes I advised the patient that a new blood work order is available for his upcoming physical, which should be scheduled within the next three months. We discussed his persistent lice infestation, and I prescribed a higher effective dose of ivermectin, instructing him to take two 3 mg tablets now and two more in two weeks. For his insomnia, I prescribed doxylamine for as-needed use, as he has stopped taking quetiapine. I also provided a prescription for meloxicam for his knee pain, reminding him to take it with food to prevent stomach upset. I strongly reiterated the importance of smoking cessation and acknowledged his participation in the lung cancer screening program. We reviewed his vaccination status, noting he is up to date on COVID and shingles, and arranged for him to receive the flu shot today. I noted his continued refusal of a colonoscopy. Patient Instructions - Continue your current medications for anxiety and hypothyroidism as prescribed. - For the lice, take two 3 mg tablets of ivermectin now, and then take the other two tablets in two weeks. - You may take doxylamine at bedtime as needed to help you sleep. - For your knee pain, you can take meloxicam as needed. Be sure to take it with food to protect your stomach. - It is very important to your health that you quit smoking. Continue to participate in the lung cancer screening program. - Please get your blood work done. The order is ready for you. - Schedule an appointment for a full physical exam within the next three months. - You will receive your flu shot today before you leave. Orders: Orders Comprehensive Met. Panel Today R73.01 - Impaired fasting glucose Free T4 (Free Thyroxine) Today R73.01 - Impaired fasting glucose Lipid Panel Today E78.00 - Pure hypercholesterolemia, unspecified, R73.01 - Impaired fasting glucose Hemoglobin A1c Today Z85.46 - Personal history of malignant neoplasm of prostate Complete Blood Count Auto Diff Today R73.01 - Impaired fasting glucose Thyroid Stimulating Hormone Today R73.01 - Impaired fasting glucose Vitamin B12 and Folate Today R73.01 - Impaired fasting glucose PSA,Total (Free>4and<10) Today Z85.46 - Personal history of malignant neoplasm of prostate Medications: New ivermectin 44,996 mcg PO QWEEK 4 tabs 0RF 2 doses B85.0 - Pediculosis due to Pediculus humanus capitis doxylamine succinate 25 mg PO BEDTIME PRN 20 tabs 0RF sleep B85.0 - Pediculosis due to Pediculus humanus capitis Refilled meloxicam 15 mg PO DAILY 30 tabs 0RF M25.562 - Pain in left knee Discontinued ivermectin Discontinued Reason: Patient Completed Course 3 mg PO Q2W PRN B85.0 - Pediculosis due to Pediculus humanus capitis
[2025-09-20 14:50] VITALS: BP 100/54; PULSE 85; RESP 18; TEMP 36.4; O2SAT 94; BMI 31.0
--- OUTSIDE RECORDS SUMMARY | 2025-09-20 19:42 | XMS_ITS | Patient Health Record ---
Author Organization [facility] Address [address] [place] [address] Care Team Providers Care Home Health Clinical Liaison Name Role Phone Steven Sanchez MD Primary Care Provider Alek Cat Unavailable [phone] Reason For Referral No Information Medications Medication SIG (Take, Route, Frequency, Duration) Notes Start Date End Date Status Cialis 10mg Active MoviPrep 100 GM Solution Reconstituted as directed Orally once; Duration: 1 dose 09/16/2012 Active Zolpidem & Diet Manage Prod 10mg Active Probiotic 20mg Activ e LORazepam 1mg Active Social History Social History Additional Details Category Social Info Options Details Miscellaneous: Marital status: single Occupation: retired firefigh ter Section Notes: Smoker; 6-7 beers on a weeke nd--cut down since the prostate surgery Problems Problem Type SNOMED Code ICD Code Onset Dates Problem Status W/U Status Risk Notes Problem Blood in stool (772816559) Blood in stool (578.1) Active confirmed Problem Constipation (74879343) Constipation (564.00) Active confirmed Plan Of Treatment Future Test Test Name Order Date COLONOSCOPY 09/16/2012 Insurance Providers Payer Name Payer Address Payer Phone Subscriber Number Group Number Insured Name Patient Relationship to Insured Coverage Start Date Coverage End Date [facility] [address] [place] [address] [phone] [id number] SOUMYA MORTENSEN Self - patient is the insured Medical (General) History Medical History History ICD Code Prostate cancer-had laparosc opic prostatectomy in 05/2012 at [facility] in [place] with Dr. Saúl Pineda [place],CVA,Lung disease,renal dise ase Back problems-spinal stenosis-s/p epidur al injections Surgical History Surgery Date(Month/Year) Prostatectomy as above [address] Kirkland by magy jamison in [place] [id number]
== END 2025-09-20 15:36 | disposition home or self-care (01) ==
LOC: HO.HMCH 14:46
PROVIDERS: PCP Internal Medicine; Visit Provider Internal Medicine
DX: R73.01 Impaired fasting glucose (principal); E03.9 Hypothyroidism, unspecified; E66.9 Obesity, unspecified; Z68.31 Body mass index [BMI] 31.0-31.9, adult; F41.1 Generalized anxiety disorder; Z85.46 Personal history of malignant neoplasm of prostate; S83.242A Other tear of medial meniscus, current injury, left knee, initial encounter; F17.210 Nicotine dependence, cigarettes, uncomplicated; Z23 Encounter for immunization

== ENCOUNTER → 2025-09-20 14:45 | Outpatient (BNVA) | payer BC, SELFPAY | PROVIDERS: Visit Provider Internal Medicine | DX: F41.1 Generalized anxiety disorder (principal); E78.00 Pure hypercholesterolemia, unspecified; E03.9 Hypothyroidism, unspecified; R73.01 Impaired fasting glucose; M25.562 Pain in left knee; B85.2 Pediculosis, unspecified; F17.210 Nicotine dependence, cigarettes, uncomplicated; E66.9 Obesity, unspecified; S83.242A Other tear of medial meniscus, current injury, left knee, initial encounter; G47.00 Insomnia, unspecified; X58.XXXA Exposure to other specified factors, initial encounter; Y93.9 Activity, unspecified; Y92.9 Unspecified place or not applicable; Y99.9 Unspecified external cause status; Z23 Encounter for immunization; Z85.46 Personal history of malignant neoplasm of prostate | CPT/HCPCS: 90471; 90656 ==